=== PATIENT | female | born 1945 | race Asian ===

== ENCOUNTER 2024-01-31 13:58 | Emergency (ER) | payer OTHER, SELFPAY ==
[2024-01-31 14:02] VITALS: BP 171/62
--- NOTE | 2024-01-31 15:06 | ED.GENMED ---
History of Present Illness
<Nayeli Loyd PA-C - Last Filed: 01/31/24 23:59>
General
Chief Complaint: Head Injury
Source: patient
Exam Limitations: none
Time Seen by Provider: 01/31/24 14:59
Nursing documentation reviewed up to this point in time: agreed with
History of Present Illness
History of Present Illness:
Patient is a 78 year old female with hx CAD, HTN HLD, DM presenting to the emergency department for evaluation of head injury following mechanical fall earlier today. Patient is Mandarin speaking although her son-in-law and nurse are able to help
translate. Patient was walking in her garage about 1-1/2 hours ago when she tripped and fell striking the back of her head on the cement. Patient denies any loss of consciousness. Patient denies any preceding chest pain, shortness of breath,
dizziness, or lightheadedness and states that it was simply a trip and fall. Patient reports a mild headache and mild dizziness at this time. No other complaints. Patient has been ambulating without difficulty. She denies any pain in her
extremities.
Patient does take a baby aspirin daily.
Past History
<Nayeli Loyd PA-C - Last Filed: 01/31/24 23:59>
Past History
ED Past Medical History: CAD, HTN, Hypercholesterolemia, IDDM and Other (Brain aneurysm, kidney stones)
ED Past Surgical History: Appendectomy and Brain
Social History
Tobacco: Non-smoker
Review of Systems
<Nayeli Loyd PA-C - Last Filed: 01/31/24 23:59>
Review of Systems
Allergies reviewed?: Yes
All Other Systems: ROS reviewed and negative except as documented in HPI and ROS
Phy Exam
<Nayeli Loyd PA-C - Last Filed: 01/31/24 23:59>
Physical Exam
Physical Exam:
Vitals: Hypertensive, otherwise vital signs stable. Afebrile
General: Patient is well appearing, no acute distress. Nontoxic-appearing
Skin: Warm and dry, no rashes or lesions
Head: Normocephalic. Small hematoma to posterior scalp. No laceration
Eyes: Sclera nonicteric. EOMs intact. No nystagmus. No tenderness surrounding orbits. No proptosis
Throat: Protecting airway
Neck: Normal ROM, no cervical spine tenderness, no meningismus. Trachea midline
Cardiac: Regular rate and rhythm, no murmurs.
Pulm: Normal respiratory effort, no wheezes, rales, rhonchi heard on exam.
Abdomen: Abdomen soft and nontender.
Back: Mild tenderness to left paracervical spinal muscles. No midline spinal tenderness. No ecchymoses to bilateral flanks. No CVA tenderness
Extremities: Atraumatic and nontender with full range of motion of bilateral upper and lower extremities. No evidence of cyanosis or edema. Great distal pulses
Neuro: AAOx3. No focal neurologic deficits. Sensation fully intact. Moving all extremities. Strength 5 out of 5 in upper and lower extremities.
Psychiatric: Normal affect.
Course
<Nayeli Loyd PA-C - Last Filed: 01/31/24 23:59>
Orders/Labs/Results
Orders:
Orders
01/31/24 14:06
CT Head W/o Iv Contrast Urgent
Comment:
Reason For Exam: fall, posterior head strike
01/31/24 15:23
CT Cervical Spine W/o Iv Contr Urgent
Comment:
Reason For Exam: fall, posterior head strike
01/31/24 15:24
Acetaminophen [Tylenol] 650 mg PO NOW STA
Vital Signs
Initial and Last Documented VS:
Initial Vital Signs
Temp Pulse Resp BP Pulse Ox
99.7 F 60 18 171/62 99
01/31/24 14:02 01/31/24 14:02 01/31/24 14:02 01/31/24 14:02 01/31/24 14:02
Last Documented Vital Signs
Temp Pulse Resp BP Pulse Ox
99.7 F 60 18 171/62 99
01/31/24 14:02 01/31/24 14:02 01/31/24 14:02 01/31/24 14:02 01/31/24 14:02
<Nasir Maynard DO - Last Filed: 01/31/24 20:41>
Orders/Labs/Results
Orders:
Orders
01/31/24 14:06
CT Head W/o Iv Contrast Urgent
Comment:
Reason For Exam: fall, posterior head strike
01/31/24 15:23
CT Cervical Spine W/o Iv Contr Urgent
Comment:
Reason For Exam: fall, posterior head strike
01/31/24 15:24
Acetaminophen [Tylenol] 650 mg PO NOW STA
Vital Signs
Initial and Last Documented VS:
Initial Vital Signs
Temp Pulse Resp BP Pulse Ox
99.7 F 60 18 171/62 99
01/31/24 14:02 01/31/24 14:02 01/31/24 14:02 01/31/24 14:02 01/31/24 14:02
Last Documented Vital Signs
Temp Pulse Resp BP Pulse Ox
99.7 F 60 18 171/62 99
01/31/24 14:02 01/31/24 14:02 01/31/24 14:02 01/31/24 14:02 01/31/24 14:02
<Nayeli Loyd PA-C - Last Filed: 01/31/24 23:59>
MDM/Problems Addressed
Differential Diagnosis Includes:
Not limited to: Contusion, concussion, hematoma, intraparenchymal bleed, cervical muscle strain, doubt C-spine fracture
MDM/Problems Addressed:
78-year-old female presenting for evaluation of head injury sustained during mechanical trip and fall about 2 hours prior to arrival. Complaining of dull headache associated with some dizziness. Does not believe there was an associated loss of
consciousness. Patient did seem somewhat confused per patient's family. Patient on baby aspirin, otherwise no thinners. Mildly hypertensive on arrival, otherwise vital signs are stable. Physical exam as above. Patient does have a small hematoma
noted to her posterior scalp otherwise no traumatic injuries noted. Neuroexam without any focal deficits. Extremities without any evidence of traumatic injury. Abdomen soft and nontender. Heart regular rate and rhythm. Lungs clear bilaterally.
Given patient's unwitnessed fall and mechanism�a CT head and cervical spine was obtained without any acute abnormalities noted. I do suspect patient likely suffered a mild concussion. This was relayed to patient's family. Return precautions
discussed at length. Recommended Tylenol, rest, hydration. They will follow-up with primary care. Patient seen with attending physician.
Chronic conditions affecting care:
CAD on aspirin, hypertension
Acute Exacerbation and/or Progression of Chronic Illness:
Acutely hypertensive
<Nayeli Loyd PA-C - Last Filed: 01/31/24 23:59>
*Radiology
Radiology exam reviewed: preliminary read by ED provider and radiology read reviewed
*Pulse Oximetry
Patient hypoxic: no
*EKG
Interpreted by ED Provider?: NA
*Sugar Cane Planter Machine Operator Interpretation
Rate: Sugar Cane Planter Machine Operator- N/A
*Critical Care Note
Total Time (30-74mins, 75-104mins- exclusive of procedures): Not Applicable
ED Attending Note
<Nayeli Loyd PA-C - Last Filed: 01/31/24 23:59>
-
Portions of this chart may have been created with voice recognition software.� Occasional wrong word or��sound alike� substitutions may have occurred due to the inherent limitations of voice recognition software.
<Nasir Maynard DO - Last Filed: 01/31/24 20:41>
ED Attending Note
Patient seen and examined by attending physician: Yes
I performed the substantive portion of visit, reviewed & personally made and approve the management plan that is documented in note by myself or POLINA.: Yes
ED Attending Note:
Patient is a 78-year-old female who was struck on the back of the head today and had a questionable loss of consciousness but definitely was dazed and seemed to be disoriented according to the family. Patient took a while to come around and be at
her baseline. It was questionable whether the patient had a loss of consciousness. Patient did not have any nausea or vomiting. Patient denies any visual or speech difficulties. Patient denies any focal weakness. Patient was dizzy and unsteady
but doing better now. On physical exam patient has mild tenderness in the posterior scalp. Cervical spine is nontender. Heart is regular without murmur gallop. Abdomen soft nontender. Patient's neuroexam is intact. Patient is able to stand and
remain standing with her eyes closed while pressure was applied to multiple sides of the patient. Do believe patient suffered a concussion but CT of the head and neck are unremarkable. This was conveyed to the patient's family and she was
discharged.
Discharge Plan
Departure
Patient with high blood pressure during this ER visit?: Yes
Condition: Good
Covid-19: Not Applicable
Discharge Problem:
Concussion, Hematoma of occipital region of scalp
Instructions: Concussion, Adult (DC), Head Injury in Adults (DC), BLOOD PRESSURE
Referrals:
Merry Shaw PA [Family Provider] - Follow up in 5-7 days
Activity Restrictions/Additional Instructions:
RETURN TO THE EMERGENCY DEPARTMENT WITH ANY SEVERE HEADACHE, INTRACTABLE NAUSEA/VOMITING, PERSISTENT DIZZINESS, SEVERE NECK PAIN, ALTERED MENTAL STATUS, WORSENING IN CURRENT SYMPTOMS, OR ANY OTHER CONCERNS
-You should take it easy over the next few days. Get plenty of rest. Stay well-hydrated. You can take Tylenol as needed for any headache or discomfort.
-Follow-up with your primary care provider in a few days for further evaluation/ensure symptoms are improving.
Monitor your symptoms closely and return to the emergency department any acute worsening/new symptoms.
Interventions
Interventions:
*Risk Screen - Suicide Last Done: 01/31/24 14:02
*General Assessment Last Done: 01/31/24 14:02
*Neglect/Abuse Screening Last Done: 01/31/24 14:02
ED- Neurological Assessment Last Done: 01/31/24 14:43
Discharge Date and Time
Print Language: GEORGIAN
[2024-01-31] MEDS: TYLENOL 650 MG PO (15:32)
== END 2024-01-31 17:30 | disposition home or self-care (01) ==
LOC: EMR 13:58
PROVIDERS: EMERGENCY PHYSICIAN Emergency Medicine; FAMILY PHYSICIAN Physician Assistant
DX: S06.0X0A Concussion without loss of consciousness, initial encounter (principal); S00.03XA Contusion of scalp, initial encounter; W01.0XXA Fall on same level from slipping, tripping and stumbling without subsequent striking against object, initial encounter; Y93.01 Activity, walking, marching and hiking; Y92.008 Other place in unspecified non-institutional (private) residence as the place of occurrence of the external cause; I10 Essential (primary) hypertension; I25.10 Atherosclerotic heart disease of native coronary artery without angina pectoris; E11.9 Type 2 diabetes mellitus without complications; E78.00 Pure hypercholesterolemia, unspecified; Z87.442 Personal history of urinary calculi; Z79.4 Long term (current) use of insulin; Z79.82 Long term (current) use of aspirin
CPT/HCPCS: 99284; 70450; 72125

== ENCOUNTER 2024-02-25 08:53 | Inpatient (IN) | payer OTHER, SELFPAY ==
[2024-02-20] VITALS (7 sets, daily range): BP systolic 131–180; BP diastolic 40–96; BMI 29.4
[2024-02-20 16:09] LABS: Glucose - Point of Care 111 mg/dl (70-99)
--- NOTE | 2024-02-20 16:27 | ED.CVA ---
History of Present Illness
<Sonya Larios CAR TESTER - Last Filed: 02/22/24 07:10>
General
Chief Complaint: CVA/TIA Symptoms
Source: family (son in law at bedside. daughter on phone interpreting)
Exam Limitations: other (language barrier)
Time Seen by Provider: 02/20/24 16:26
Onset of Stroke Symptoms
Onset of symptoms known: No
Time pt last seen normal is known: No
History of Present Illness
History of Present Illness:
78yo female w /o HTN, HLD, IDDM, Daughter states pt was hospitalized in [place] 2011 for blood sugar out of control. Prior to leaving daughter insisted 'everything be checked out.. her heart, her brain, etc so a brain angiogram was done brain aneurism
incidentally found,pt was asymptomatic. Had coil in [place] and f/u CTA 05/2022 here at with no acute abnormality.
Pt was seen by family 7 p.m. last night with 'a little' slurred speech, not feeling well, went to bed early.
Awake 7 a.m. and from 7 a t 1 p.m 'seemed normal.' She got herself dressed and seemed fine. He happened to run into her in the kitchen at 3 p.m. and she was slurring her speech worse so he drove her here.
Pt arrives with daughter translating over 's cell phone.
Pt denies CP,SOB,Abd pain. She says she was having trouble with her 'getting around' unsteady on her feet.
Past History
<Sonya Larios CAR TESTER - Last Filed: 02/22/24 07:10>
Past History
ED Past Medical History: CAD, HTN, Hypercholesterolemia, IDDM and Other (Brain aneurysm, kidney stones)
ED Past Surgical History: Appendectomy and Brain (coil for aneurysm 2011)
Social History
Tobacco: Non-smoker
Review of Systems
<Sonya Larios CAR TESTER - Last Filed: 02/22/24 07:10>
Review of Systems
Allergies reviewed?: Yes
All Other Systems: ROS reviewed and negative except as documented in HPI and ROS
Constitutional: Denies fever
Respiratory: Denies trouble breathing
Cardiac: Denies chest pain
ABD/GI: Denies abdominal pain, nausea, vomiting or diarrhea
: Denies dysuria, flank pain, difficulty voiding or urgency
Musculoskeletal: Reports no symptoms
Skin: Reports no symptoms
Neurological: Reports dizzy (feels 'a little dizzy') and weakness (mild right side weakness); Denies headache or numbness
Phy Exam
<Sonya Larios, CAR TESTER - Last Filed: 02/22/24 07:10>
Physical Exam
Physical Exam:
GENERAL: No acute distress. A&Ox3.
CONSTITUTIONAL: Afebrile.
EYES: PERRL, conjunctivae normal, EOMs intact
ENMT: moist mucus membranes, Pharynx nl
RESPIRATORY: Regular respirations, nonlabored, lungs clear.
CARDIOVASCULAR: Regular rate and rhythm, no murmurs, no rubs.
GI: Soft, nontender, normal BS
MUSCULOSKELETAL: Moves with ease. Well perfused.
SKIN: Warm, dry, pink
PSYCH: Normal mood and affect. Well kept, interactive and appropriate
NEUROLOGIC: Awake, alert and oriented. Mild right mouth droop. Right hand grasp and right leg strength 4/5. left side 5/5.
Scores
<Sonya Larios, CAR TESTER - Last Filed: 02/22/24 07:10>
NIH Stroke Score
Level of Consciousness: 0 - Alert
LOC Questions: 0-Answers both correctly
LOC Commands: 0-Performs both correctly
Best Horizontal Gaze: 0-Normal
Visual Jade: 0=Normal, no visual loss
Facial Palsy: 1=Minor paralysis
Motor - Right Arm: 0=No drift 10 seconds
Motor - Left Arm: 0=No drift 10 seconds
Motor - Right Le-Drift < 5 seconds
Motor - Left Le-No drift 5 seconds
Limb Ataxia: 0-Absent
Sensation: 0-Normal
Best Language: 0-No aphasia
Dysarthria: 1-Mild slurring
Extinction and Inattention: 0-No abnormality
Total Score:: 3
Thrombolytic Contraindication
Reasons for NON-Tx with Thrombolytics ABSOLUTE Exclusions: Greater than 4.5 hrs from onset of sxs
IAT Contraindications: NIHSS < 6
<Spencer Almaguer, DO - Last Filed: 02/21/24 15:45>
NIH Stroke Score
Total Score:: 3
Course
<Sonya Larios, CAR TESTER - Last Filed: 02/22/24 07:10>
Orders/Labs/Results
Orders:
Orders
02/20/24 16:09
Electrocardiogram (*1) Urgent
Reason for Study: Other
Other Reason for Exam: Possible Stroke
Bedside Glucose- Treatment ONCE
Cardiac Monitoring- Treatment ONCE
IV Insert/Care/Rem.- Treatment PRN
02/20/24 16:10
EKG- Treatment ONCE
02/20/24 16:23
Complete Blood Count/With Diff Urgent
Comprehensive Metabolic Panel Urgent
PTT Urgent
Prothrombin Time Urgent
Troponin I Urgent
02/20/24 16:26
CT Head W/o Cont STROKE ALERT Urgent
Reason For Exam: slurred speech
02/20/24 16:32
CT Head/Neck Ang STROKE ALERT Urgent
Reason For Exam: strok alert, Dr. Forman request
02/20/24 17:17
Urinalysis Reflex To Culture Urgent
Date Specimen was Collected: 02/20/24
Time Specimen was Collected: 19:06
02/20/24 18:24
Admit/Transfer Patient As Directed
Co-Sign Provider:
Level of Care: Observation services
Assign to:: Telemetry
Physician / Group: Bishnu
Diagnosis: TIA/CVA
Reason for Telemetry: CVA/TIA
Date to Stop Telemetry: 02/23/24
Time to Stop Telemetry: 11:00
Clopidogrel Bisulfate [Plavix] 300 mg PO NOW STA
02/20/24 18:25
PRN Pain Medication Management As Directed
May give lesser potent ordered pain med per pt: Yes
preference::
Protocol:: Medication orders for pain may be administered in a
manner that supports deferring to patient preference
when the pt is:
- Requesting an ordered lesser potent pain medication.
Least to most potent pain medications are defined
as: acetaminophen < NSAID < tramadol < opioids
(morphine, oxycodone, hydromorphone).
- Requesting a lesser dose of the same medication IF
ORDERED.
- Requesting a less intrusive route of administration
if both routes are prescribed by the provider (PO <
IV).
02/20/24 18:26
Code Status As Directed
Resuscitation Status: Full Code
02/20/24 19:43
Acetaminophen [Tylenol/Feverall] 650 mg RECTAL Q4HPRN PRN
Acetaminophen [Tylenol] 650 mg PO Q4HPRN PRN
Dextrose 50%-Water [Dextrose 50% Syringe] 12.5 grams IV [id number] PRN
Glucagon [GlucaGen] 1 mg IM PRN PRN
02/20/24 19:43
Case Management Consult ONCE
Case Management Consult: Discharge Planning
Comment: stroke/tia
DIETARY CONSULT Routine
Reason for Consult: stroke/TIA
Print Controller Routine
Activity As Directed
Activity Level: Out of Bed- Chair
With Assistance
Bedside Glucose Monitoring As Directed
Frequency: AC&HS
Additional Instructions:: Change to q6h if pt on TPN, tube feeding or not eating
NIH Stroke Scale As Directed
Directions: Per protocol
Comment: every shift and with any change in condition or mental status
Neurological Checks As Directed
Frequency: q4h
Additional Instructions:: q4h x 24h upon admission to the floor, then qshift & with any change in condition
and mental status
Patient Education As Directed
Type: Stroke education packet
Comment: provide to patient and family
Pneumatic Compression Sleeves As Directed
Type: Knee high
Swallow Screening CVA/TIA ONLY As Directed
Comment: NPO until swallowing screening completed
If patient FAILS swallow screening:: NPO, Speech Therapy consult, Aspiration Precautions
If patient PASSES swallow screening, diet:: 2000 chadwick/ 17 CHO Diabetic
Above diet order entered?: Yes- passed screening
Vital Signs As Directed
Frequency: Per unit guidelines
Ot Eval And Treat Routine
Pt Eval And Treat Routine
Activity Level: Out of Bed-Early Mobility
Speech Therapy Eval & Treat Routine
DX Deep Vein Thrombosis Video Routine
02/20/24 22:00
insulin glargine [Basaglar KwikPen U-100 Insulin] 20 unit SC HS
02/21/24 06:00
Levothyroxine [Synthroid] 25 mcg PO DAILY@0600
02/21/24 07:23
Basic Metabolic Panel IN AM
Cardiovascular Evaluation IN AM
Complete Blood Count/No Diff IN AM
Glycohemoglobin (HgbA1c) IN AM
Magnesium IN AM
TSH Reflex To Free T4 IN AM
02/21/24 07:30
Insulin Aspart Corrective Mod [Novolog Flexpen-Moderate Resistance] See Protocol SC AC
02/21/24 08:00
Aspirin Chewable [Low Strength Aspirin] 81 mg PO DAILY
Clopidogrel Bisulfate [Plavix] 75 mg PO DAILY
Dapagliflozin [Farxiga] 10 mg PO DAILY
Losartan [Cozaar] 50 mg PO DAILY
Metoprolol Xl [Toprol Xl] 25 mg PO DAILY
Rosuvastatin Calcium [Crestor] 10 mg PO DAILY
02/23/24 11:00
DC Protocol for Telemetry ONCE
Abnormal Lab Results
02/20/24 02/20/24 02/20/24
16:07 16:23 17:17
RBC 3.47 L 10^6/uL
(4.20-5.40)
Hgb 10.7 L g/dL
(12.0-16.0)
Hct 32.1 L %
(37.0-47.0)
MPV 10.6 H fL
(7.4-10.4)
Absolute Monos (auto) 0.7 H 10^3/uL
(0.1-0.6)
APTT 21.7 L Sec
(23.4-35.0)
BUN 32 H mg/dl
(7-17)
Creatinine 1.7 H mg/dL
(0.6-1.0)
Glucose 109 H mg/dl
(70-99)
AST 40 H U/L
(14-36)
Ur Occult Blood Reflex Trace A
(Negative)
Urine Bacteria (Reflex) Few A
(Negative)
Urine Glucose 3+ A
(Negative)
POC Glucose 111 H mg/dl
(70-99)
02/20/24 16:23
02/20/24 16:23
Vital Signs
Initial and Last Documented VS:
Initial Vital Signs
Temp Pulse Resp BP Pulse Ox
98.9 F 66 18 151/69 99
02/20/24 15:59 02/20/24 15:59 02/20/24 15:59 02/20/24 15:59 02/20/24 15:59
Last Documented Vital Signs
Temp Pulse Resp BP Pulse Ox
98.3 F 52 18 128/46 99
02/22/24 03:42 02/22/24 03:42 02/22/24 03:42 02/22/24 03:42 02/22/24 03:42
Crystallt;Spencer Almaguer DO - Last Filed: 02/21/24 15:45>
Orders/Labs/Results
Orders:
Orders
02/20/24 16:09
Electrocardiogram (*1) Urgent
Reason for Study: Other
Other Reason for Exam: Possible Stroke
Bedside Glucose- Treatment ONCE
Cardiac Monitoring- Treatment ONCE
IV Insert/Care/Rem.- Treatment PRN
02/20/24 16:10
EKG- Treatment ONCE
02/20/24 16:23
Complete Blood Count/With Diff Urgent
Comprehensive Metabolic Panel Urgent
PTT Urgent
Prothrombin Time Urgent
Troponin I Urgent
02/20/24 16:26
CT Head W/o Cont STROKE ALERT Urgent
Reason For Exam: slurred speech
02/20/24 16:32
CT Head/Neck Ang STROKE ALERT Urgent
Reason For Exam: strok alert, Dr. Forman request
02/20/24 17:17
Urinalysis Reflex To Culture Urgent
Date Specimen was Collected: 02/20/24
Time Specimen was Collected: 19:06
02/20/24 18:24
Admit/Transfer Patient As Directed
Co-Sign Provider:
Level of Care: Observation services
Assign to:: Telemetry
Physician / Group: Bishnu
Diagnosis: TIA/CVA
Reason for Telemetry: CVA/TIA
Date to Stop Telemetry: 02/23/24
Time to Stop Telemetry: 11:00
Clopidogrel Bisulfate [Plavix] 300 mg PO NOW STA
02/20/24 18:25
PRN Pain Medication Management As Directed
May give lesser potent ordered pain med per pt: Yes
preference::
Protocol:: Medication orders for pain may be administered in a
manner that supports deferring to patient preference
when the pt is:
- Requesting an ordered lesser potent pain medication.
Least to most potent pain medications are defined
as: acetaminophen < NSAID < tramadol < opioids
(morphine, oxycodone, hydromorphone).
- Requesting a lesser dose of the same medication IF
ORDERED.
- Requesting a less intrusive route of administration
if both routes are prescribed by the provider (PO <
IV).
02/20/24 18:26
Code Status As Directed
Resuscitation Status: Full Code
02/20/24 19:43
Acetaminophen [Tylenol/Feverall] 650 mg RECTAL Q4HPRN PRN
Acetaminophen [Tylenol] 650 mg PO Q4HPRN PRN
Dextrose 50%-Water [Dextrose 50% Syringe] 12.5 grams IV [id number] PRN
Glucagon [GlucaGen] 1 mg IM PRN PRN
02/20/24 19:43
Case Management Consult ONCE
Case Management Consult: Discharge Planning
Comment: stroke/tia
DIETARY CONSULT Routine
Reason for Consult: stroke/TIA
Print Controller Routine
Activity As Directed
Activity Level: Out of Bed- Chair
With Assistance
Bedside Glucose Monitoring As Directed
Frequency: AC&HS
Additional Instructions:: Change to q6h if pt on TPN, tube feeding or not eating
NIH Stroke Scale As Directed
Directions: Per protocol
Comment: every shift and with any change in condition or mental status
Neurological Checks As Directed
Frequency: q4h
Additional Instructions:: q4h x 24h upon admission to the floor, then qshift & with any change in condition
and mental status
Patient Education As Directed
Type: Stroke education packet
Comment: provide to patient and family
Pneumatic Compression Sleeves As Directed
Type: Knee high
Swallow Screening CVA/TIA ONLY As Directed
Comment: NPO until swallowing screening completed
If patient FAILS swallow screening:: NPO, Speech Therapy consult, Aspiration Precautions
If patient PASSES swallow screening, diet:: 1999 chadwick/ 17 CHO Diabetic
Above diet order entered?: Yes- passed screening
Vital Signs As Directed
Frequency: Per unit guidelines
Ot Eval And Treat Routine
Pt Eval And Treat Routine
Activity Level: Out of Bed-Early Mobility
Speech Therapy Eval & Treat Routine
DX Deep Vein Thrombosis Video Routine
02/20/24 22:00
insulin glargine [Basaglar KwikPen U-100 Insulin] 20 unit SC HS
02/21/24 06:00
Levothyroxine [Synthroid] 25 mcg PO DAILY@0600
02/21/24 07:23
Basic Metabolic Panel IN AM
Cardiovascular Evaluation IN AM
Complete Blood Count/No Diff IN AM
Glycohemoglobin (HgbA1c) IN AM
Magnesium IN AM
TSH Reflex To Free T4 IN AM
02/21/24 07:30
Insulin Aspart Corrective Mod [Novolog Flexpen-Moderate Resistance] See Protocol SC AC
02/21/24 08:00
Aspirin Chewable [Low Strength Aspirin] 81 mg PO DAILY
Clopidogrel Bisulfate [Plavix] 75 mg PO DAILY
Dapagliflozin [Farxiga] 10 mg PO DAILY
Losartan [Cozaar] 50 mg PO DAILY
Metoprolol Xl [Toprol Xl] 25 mg PO DAILY
Rosuvastatin Calcium [Crestor] 10 mg PO DAILY
02/23/24 11:00
DC Protocol for Telemetry ONCE
Abnormal Lab Results
02/20/24 02/20/24 02/20/24
16:07 16:23 17:17
RBC 3.47 L 10^6/uL
(4.20-5.40)
Hgb 10.7 L g/dL
(12.0-16.0)
Hct 32.1 L %
(37.0-47.0)
MPV 10.6 H fL
(7.4-10.4)
Absolute Monos (auto) 0.7 H 10^3/uL
(0.1-0.6)
APTT 21.7 L Sec
(23.4-35.0)
BUN 32 H mg/dl
(7-17)
Creatinine 1.7 H mg/dL
(0.6-1.0)
Glucose 109 H mg/dl
(70-99)
AST 40 H U/L
(14-36)
Ur Occult Blood Reflex Trace A
(Negative)
Urine Bacteria (Reflex) Few A
(Negative)
Urine Glucose 3+ A
(Negative)
POC Glucose 111 H mg/dl
(70-99)
02/20/24 16:23
02/20/24 16:23
Vital Signs
Initial and Last Documented VS:
Initial Vital Signs
Temp Pulse Resp BP Pulse Ox
98.9 F 66 18 151/69 99
02/20/24 15:59 02/20/24 15:59 02/20/24 15:59 02/20/24 15:59 02/20/24 15:59
Last Documented Vital Signs
Temp Pulse Resp BP Pulse Ox
98.3 F 52 18 128/46 99
02/22/24 03:42 02/22/24 03:42 02/22/24 03:42 02/22/24 03:42 02/22/24 03:42
<Sonya Larios, CAR TESTER - Last Filed: 02/22/24 07:10>
MDM/Problems Addressed
Differential Diagnosis Includes:
TIA, CVA, hyponatremia, dehydration, UTI
MDM/Problems Addressed:
78yo female w /o HTN, HLD, IDDM, Daughter states pt was hospitalized in [place] 2011 for blood sugar out of control. Prior to leaving daughter insisted 'everything be checked out.. her heart, her brain, etc so a brain angiogram was done brain aneurism
incidentally found,pt was asymptomatic. Had coil in [place] and f/u CTA 05/2022 here at with no acute abnormality.
Pt was seen by family 7 p.m. last night with 'a little' slurred speech, not feeling well, went to bed early.
Awake 7 a.m. and from 7 a t 1 p.m 'seemed normal.' She got herself dressed and seemed fine. He happened to run into her in the kitchen at 3 p.m. and she was slurring her speech worse so he drove her here.
Pt arrives with daughter translating over 's cell phone.
Pt denies CP,SOB,Abd pain. She says she was having trouble with her 'getting around' unsteady on her feet.
Strok alert called. Spoke with Dr. Forman Neurology who requests CTA. Pt to CT scan
Pt back from CT, no IV access so plain CT done, no acute finding.
5:[address] Almaguer at bedside, using Language Line performed more thorough history and exam and will assume care from this point.
He discussed finding with daughter and son in law.
Pt to return to CT for CTA
Critical care statement: A total of 30 minutes of critical care time was provided for this patient. This includes management of unstable vital signs, evaluation of the patient at bedside, reviewing the patient's pertinent medical records, discussion
with consultants, review of old CTs and review of pertinent medical records. This time with separate from time utilized to perform the aforementioned documented procedures
<Sonya Larios NP - Last Filed: 02/22/24 07:10>
*Critical Care Note
Total Time (30-74mins, 75-104mins- exclusive of procedures): Not Applicable
ED Attending Note
<Sonya Larios, CAR TESTER - Last Filed: 02/22/24 07:10>
-
Portions of this chart may have been created with voice recognition software.� Occasional wrong word or��sound alike� substitutions may have occurred due to the inherent limitations of voice recognition software.
<Spencer AlistairJeff Almaguer DO - Last Filed: 02/21/24 15:45>
ED Attending Note
Patient seen and examined by attending physician: Yes
I performed a history and physical exam of patient and discussed management with resident, I reviewed resident's note and agree with documented findings and plan of care.: Yes
ED Attending Note:
I agree with Gricel's note
Patient presents for evaluation of some slurred speech, right-sided weakness and generally not acting herself. Patient is a Mandarin speaking 78-year-old lady who is currently presenting with her son-in-law. The patient's daughter is driving out
of the country. Last night the son-in-law felt the patient had some difficulty speaking and just did not seem herself. Symptoms seem to wax and wane. This morning she seemed to be speaking better in his estimation. When I asked the patient
through a Mandarin speaking fruit receiver if she felt normal when she woke up this morning she stated she did not. This afternoon around 3:00 he noted her symptoms were worse again. This prompted him to call 911 bring her to the hospital.
General: Awake, Alert, Oriented X3. No acute distress.
Vitals: unremarkable
Head: Atraumatic
Eyes: Pupils equal, EOMI
Throat: Airway intact, no exudates
Neck: Trachea midline
Lungs: Clear and equal b/l
Heart: Regular rate, no murmurs
Abd: Soft, Nontender, No pulsatile mass
Neuro: Mild right facial droop, mild drift right lower extremity, mildly slurred speech.
Skin: Warm, dry, no rash
Extremities: pulses equal b/l, no edema
CT without contrast shows an aspect score of 10. Old strokes on the left.
Patient is not a candidate for TNK because we cannot establish clearly that she was back to normal this morning. I suspect the onset of her symptoms was actually last night making her out of the window for thrombolytics.
Discharge Plan
Departure
Patient Disposition: Admit
Date of Disposition: 02/20/24
Time of Disposition: 17:51
Admit to: Telemetry
Presentation/result/management discussed w/ accepting MD/DO: Hospitalist
Condition: Fair
Discharge Problem:
Acute CVA (cerebrovascular accident)
Interventions
Interventions:
*Risk Screen - Suicide Last Done: 02/20/24 15:59
*General Assessment Last Done: 02/20/24 15:59
*Neglect/Abuse Screening Last Done: 02/20/24 15:59
ED- Fall Risk Assessment Last Done: 02/20/24 16:17
*ED COVID-19 Vaccine History Last Done: 02/20/24 16:16
*Nursing Disposition Last Done: 02/20/24 19:46
ED- Pulmonary Assessment Last Done: 02/20/24 16:20
ED- Neurological Assessment Last Done: 02/20/24 19:16
ED- Cardiac Assessment Last Done: 02/20/24 16:17
ED Swallowing Screen Last Done: 02/20/24 19:29
Discharge Date and Time
Discharge Date/Time: 02/20/24 19:46
[2024-02-20 16:29] LABS: % Basophils 0.6 % (0-2); % Eosinophils 1.6 % (0-6); % Immature Granulocytes 0.2 % (0-0.5); % Lymphocytes 24.6 % (20.5-51.1); Absolute Basophils 0.1 10^3/uL (0-0.2); Absolute Eosinophils 0.2 10^3/uL (0-0.7); Absolute Lymphocytes 2.3 10^3/uL (1.2-3.4); Absolute Monocytes 0.7 10^3/uL (0.1-0.6); Absolute Neutrophils 6.2 10^3/uL (1.4-6.5); Hematocrit 32.1 % (37.0-47.0); Hemoglobin 10.7 g/dL (12.0-16.0); Mean Corp Hgb Conc. 33.3 g/dL (33.0-37.0); Mean Corpuscular Hgb 30.8 pg (27.0-31.0); Mean Corpuscular Volume 92.5 fL (81.0-99.0); Mean Platelet Volume 10.6 fL (7.4-10.4); Nucleated Red Blood Cells % 0 %; Platelet Count 192 10^3/uL (130-400); Red Blood Cell Count 3.47 10^6/uL (4.20-5.40); White Blood Cell Count 9.4 10^3/uL (4.8-10.8)
--- NOTE | 2024-02-20 16:29 | PHANOTE ---
med rec tech(02/20/24)-Patient and family unable to provide medication list, compiled list through [facility] records(family practice visit 01/09/24) and [facility].
[2024-02-20 16:40] LABS: APTT 21.7 Sec (23.4-35.0); INR 1.03; PT 13.6 Sec (11.4-14.6)
[2024-02-20 16:52] LABS: Troponin I < 0.012 ng/ml
[2024-02-20 16:57] LABS: ALT (SGPT) 29 U/L (0-35); AST (SGOT) 40 U/L (14-36); Albumin 4.6 g/dl (3.5-5.0); Alkaline Phosphatase 73 U/L (38-126); Blood Urea Nitrogen 32 mg/dl (7-17); Calcium 9.9 mg/dl (8.4-10.2); Carbon Dioxide 23 mmol/L (22-30); Chloride 106 mmol/L (98-107); Glucose 109 mg/dl (70-99); Potassium 5.1 mmol/L (3.5-5.1); Sodium 144 mmol/L (135-145); Total Bilirubin 0.7 mg/dl (0.2-1.3)
--- NOTE | 2024-02-20 18:31 | HPS.HSE ---
Addendum entered and electronically signed by Ericka Gottlieb PA-C 02/20/24 20:42:
Patient unable to have MRI as we are unable to obtain extension agent information for the brain aneurysm coil. Will cancel MRI order.
Original Note:
Family Physician
-
Family Physician: Govind Calderon
Chief Complaint
-
Slurred Speech
History of Present Illness
Patient is 78 yo Mandarin-speaking female with a hx of HTN, DM, hypothyroidism, brain aneurysm s/p coil placed in 2011 in [place] presents for stroke-like symptoms beginning last night. History obtained through son-in-law and through Mandarin language
line can top setter. Last night around 7pm she developed 'a little' slurred speech and was not feeling well, so she went to bed early. She awoke at 7am this morning and son-in-law reports that she felt a bit better until the afternoon when he saw her
in the kitchen and she was again experiencing slurred speech. Patient reports feeling 'dizzy' and weak and that her speech is still a little slurred. She denies a personal history of heart disease or stroke.
Medical History
Past Medical History
Past Medical History: Reports Other
Additional Past Medical History:
ASCVD
Diabetes Mellitus, Type II
CKD Stage IV
Essential Hypertension
Hyperlipidemia
Hypothyroidism
Brain Aneurysm s/p Coil
Past Surgical History: Reports Other
Additional Past Surgical History:
Appendectomy
Brain Aneurysm Coil
Social History
Tobacco: Non-smoker
Alcohol: None
Living: With Family
Family History
Family History: Other (Mother: Heart Disease)
Allergies / Home Medications
Allergies reflects when Allergies were last updated in [facility].
Home Medications with original date entered in [facility] [facility]
Allergy/Medication List:
Allergies
Allergy/AdvReac Type Severity Reaction Status Date / Time
No Known Allergies Allergy Verified 02/20/24 15:58
Home Medications
aspirin 81 mg chewable tablet 81 mg PO DAILY 02/20/24
calcium carbonate 500 mg PO DAILY 02/20/24
empagliflozin 25 mg tablet (Jardiance) 25 mg PO DAILY 02/20/24
hydrochlorothiazide 25 mg tablet 25 mg PO DAILY 02/20/24
insulin glargine 100 unit/mL (3 mL) subcutaneous pen (Basaglar KwikPen U-100 Insulin) unit SC HS 02/20/24
insulin glulisine U-100 100 unit/mL subcutaneous pen (Apidra SoloStar U-100 Insulin) 1 sliding scale dose SC DIRECTED 02/20/24
levothyroxine 25 mcg tablet 25 mcg PO DAILY 02/20/24
losartan 50 mg tablet 50 mg PO DAILY 02/20/24
metoprolol succinate 25 mg tablet,extended release 24 hr 25 mg PO DAILY 02/20/24
nitroglycerin 0.4 mg sublingual tablet 0.4 mg sublingual [id number] PRN chest pain 02/20/24
rosuvastatin 40 mg tablet 40 mg PO DAILY 02/20/24
Review of Systems
-
Unable to obtain full review of systems at this time due to: Language Barrier
Physical Exam
Vital Signs
Vital Signs
Temp Pulse Resp BP Pulse Ox
98.9 F 72 18 180/83 100
02/20/24 15:59 02/20/24 16:30 02/20/24 16:30 02/20/24 16:11 02/20/24 16:30
Physical Exam
General: Comfortable and Conversant
HEENT: Moist mucous membranes and Atraumatic
Respiratory: Clear and Non Labored Respirations
Cardiac: S1/S2 and Regular Rhythm
GI: Soft and Non Tender
Musculoskeletal: No Clubbing and No Cyanosis
Skin: Warm and Dry
Neuro: Awake, Alert, Oriented, Facial Droop and Other (4/5 Strength RUE and RLE; 5/5 Strength LUE and LLE)
Psych: Calm
Laboratory Results
-
02/20/24 16:23
02/20/24 16:23
Laboratory Results
PT 13.6 Sec (11.4-14.6) 02/20/24 16:23
INR 1.03 02/20/24 16:23
APTT 21.7 Sec (23.4-35.0) L 02/20/24 16:23
Total Bilirubin 0.7 mg/dl (0.2-1.3) 02/20/24 16:23
AST 40 U/L (14-36) H 02/20/24 16:23
ALT 29 U/L (0-35) 02/20/24 16:23
Alkaline Phosphatase 73 U/L (38-126) 02/20/24 16:23
Troponin I < 0.012 ng/ml 02/20/24 16:23
Data Reviewed
-
Lab Data: Labs Reviewed by me
Impression/Plan
-
Right Facial Droop with Right Sided Weakness, clinical concern for TIA/CVA
-Consult Neurology
-Continue Aspirin and Plavix
-Check Brain MRI
-Check HgbA1c and FLP
-Monitor Neuro-Checks
ASCVD
-Continue aspirin
Diabetes Mellitus, Type II
-Check HgbA1c
-Continue Basaglar
-Monitor sugars and continue coverage insulin
Chronic Kidney Disease
-Unknown baseline creatinine, but outpatient records indicate stage 4
Essential Hypertension
-Hold HCTZ
-Continue losartan and metoprolol with hold parameters
Hyperlipidemia
-Continue rosuvastatin
Hypothyroidism
-Continue levothyroxine
Hx Brain Aneurysm s/p Coil
DVT proph: SCDs
Code Status: Full Code
[2024-02-20 19:15] LABS: Urine Albumin Trace (Neg - Trace); Urine Bilirubin Negative (Negative); Urine Character Clear (Clear); Urine Color Yellow; Urine Glucose 3+ (Negative); Urine Ketone Negative (Negative); Urine Leukocyte Negative (Negative); Urine Nitrite Negative (Negative); Urine Occult Blood Trace (Negative); Urine Urobilinogen Negative (Neg - 1+)
[2024-02-20] MEDS: PLAVIX 300 MG PO (19:21)
[2024-02-20 19:23] LABS: Urine Red Blood Cell 0-2 /HPF (0-2); Urine White Cell 0-2 /HPF (0-5)
[2024-02-20 19:24] LABS: Urine Bacteria Few (Negative); Urine Mucus Moderate
--- NOTE | 2024-02-20 19:45 | W.PN.UPDATE ---
Update Note
Progress Note Update
This is an addendum to the H&P written by Violet Gottlieb on 02/20/2024.� 78-year-old Y[place]ut speaking female with past medical history of CAD, hypertension, hypercholesteremia, diabetes, asymptomatic brain aneurysm status post coiling in 2011,
CKD 4, hypothyroidism, presenting with slurred speech since last night.
CT head shows no acute abnormality.� CTA head and neck shows no significant vascular occlusion, aneurysm or dissection.� There is 50% stenosis of the proximal bilateral internal carotid arteries.
On examination she has right lower facial droop, right upper extremity weakness, slurred speech.
Concern for left hemispheric TIA/CVA.� Continue aspirin.� Give Plavix.� Neurochecks per protocol.� Check A1c and lipid panel.� Check MRI brain.� Check speech and swallow/PT/OT.� Neurology consulted.
--- NOTE | 2024-02-20 19:55 | PTCARENOTE ---
Patient arrived from ED via stretcher. Patient pulled over onto the bed. Accompanied by son. Patient is x1 assist with no assistive devices. Family helped obtain health history and admission questions. Patient speaks mandarin. Language line
obtained. Bed alarm in place. Call [facility] is within reach.
[2024-02-20] MEDS: LANTUS 0.2 UNITS SC (21:30)
[2024-02-20 21:33] LABS: Glucose - Point of Care 168 mg/dl (70-99)
[2024-02-21] VITALS (8 sets, daily range): BP systolic 98–165; BP diastolic 48–70; PULSE 66–69; O2SAT 98
[2024-02-21] MEDS: SYNTHROID 25 MCG PO (04:53)
[2024-02-21 07:34] LABS: Glucose - Point of Care 119 mg/dl (70-99)
[2024-02-21 07:56] LABS: Hematocrit 30.3 % (37.0-47.0); Hemoglobin 10.4 g/dL (12.0-16.0); Mean Corp Hgb Conc. 34.3 g/dL (33.0-37.0); Mean Corpuscular Hgb 31.7 pg (27.0-31.0); Mean Corpuscular Volume 92.4 fL (81.0-99.0); Mean Platelet Volume 10.5 fL (7.4-10.4); Platelet Count 157 10^3/uL (130-400); Red Blood Cell Count 3.28 10^6/uL (4.20-5.40); Red Cell Dist. Width 12.5 % (11.5-14.5); White Blood Cell Count 6.6 10^3/uL (4.8-10.8)
[2024-02-21 08:11] LABS: Blood Urea Nitrogen 24 mg/dl (7-17); Calcium 9.5 mg/dl (8.4-10.2); Carbon Dioxide 21 mmol/L (22-30); Chloride 106 mmol/L (98-107); Estimated Creatinine Clearance 30 ml/min; Glucose 109 mg/dl (70-99); HDL Cholesterol 49 mg/dl; LDL Cholesterol, Calculated 36 mg/dl; Magnesium 2.3 mg/dl (1.6-2.3); Potassium 4.6 mmol/L (3.5-5.1); Sodium 143 mmol/L (135-145); Total Cholesterol 117 mg/dl (50-199); Triglyceride 160 mg/dl (10-149); Very Low Density Lipoprotein 32 mg/dl (0-30); eGFR 35.45
--- NOTE | 2024-02-21 08:35 | PTOTSP ---
Speech Language Pathology
Pt seen for speech and cognitive-linguistic evaluation. Utilized video SHAPE auto body mechanic apprentice during evaluation. Supply Chain Director reported intermittent dysarthria. Stated speech would be clear, and then a statement would be unintelligible. Pt oriented
to name, , hospital, and month/year. Did not know which hospital, although she participated in outpatient PT in 2017, so should be familiar with location. Also stated it was February 18 instead of the . Stated she has had memory issues
for some time. Provided 3 words to remember for 3 minutes. Pt did not recall being provided 3 words at the end of 3 minutes. Confrontation naming= 50% independently, semantic cueing did not increase accuracy. Pt was not aware of word-finding
difficulties or intermittent dysarthria.
Pt also seen for clinical bedside swallow evaluation. P.O. trials of regular solids and thin liquids provided. Adequate mastication, bolus formation, and A-P transit noted with no oral residue. No overt signs of aspiration.
Recommend:
(1) Continue regular solids/thin liquids
(2) General aspiration precautions
(3) Meds as tolerated
(4) Further dysphagia services not indicated. Will continue to follow for cognitive-linguistic and dysarthria tx
--- NOTE | 2024-02-21 08:50 | W.PN.HOSP.TC ---
Today's Communication/Plan
-
DAPT and statins. PT OT. Repeat CT of the head
Assessment / Plan
Assessment / Plan
Physical Exam
General: Comfortable and Conversant
HEENT: Moist mucous membranes and Atraumatic
Respiratory: Clear and Non Labored Respirations
Cardiac: S1/S2 and Regular Rhythm
GI: Soft and Non Tender
Musculoskeletal: No Clubbing and No Cyanosis
Skin: Warm and Dry
Neuro: Awake, Alert, Oriented, Facial Droop and Other (4/5 Strength RUE and RLE; 5/5 Strength LUE and LLE)
Psych: Calm
A/P:
Right Facial Droop with Right Sided Weakness, clinical concern for TIA/CVA
-Consult Neurology
-Continue Aspirin and Plavix
-Unable to do brain MRI due to aneurysm coiling. Repeat CT of the head 24 hours
-Discussed with patient via outreach manager
-Check HgbA1c and FLP--> 6.5, and LDL 36
-Monitor Neuro-Checks
-PT OT and speech therapy eval
ASCVD
-Continue aspirin
Diabetes Mellitus, Type II
-Check HgbA1c and resulted as above
-Continue Basaglar
-Monitor sugars and continue coverage insulin
Chronic Kidney Disease
-Unknown baseline creatinine, but outpatient records indicate stage 4
Essential Hypertension
-Hold HCTZ
-Continue losartan and metoprolol with hold parameters
Hyperlipidemia
-Continue rosuvastatin
Hypothyroidism
-Continue levothyroxine
Hx Brain Aneurysm s/p Coil
DVT proph: SCDs
Code Status: Full Code
Anticipated Discharge: 24 - 48 hours
Subjective/Interval History
-
Date of Service: February 21, 2024
Patient still having some weakness in her right upper and lower extremity and also slurred speech and feels not back to her baseline.
Objective Data
-
Labs:
Laboratory Results
02/21/24
07:23
WBC 6.6
Hgb 10.4 L
Hct 30.3 L
Plt Count 157
Sodium 143
Potassium 4.6
Chloride 106
Carbon Dioxide 21 L
BUN 24 H
Creatinine 1.5 H
Glucose 109 H
Calcium 9.5
Vital Signs:
Vital Signs
Temp Pulse Resp BP Pulse Ox
97.9 F 56 16 151/48 99
02/21/24 04:36 02/21/24 04:36 02/21/24 04:36 02/21/24 04:36 02/21/24 04:36
I&O
02/20/24 02/21/24 02/22/24
06:59 06:59 06:59
Intake Total 480 / 480
Balance 480 / 480
--- NOTE | 2024-02-21 08:50 | CON.NEURO4 ---
Addendum entered and electronically signed by Cullen Ayers MD 02/21/24 11:46:
Studies reviewed.
I have personally examined the patient. I reviewed and agree with the EXECUTIVE VICE PRESIDENT's Note.
My addenda:
Awake, alert, interactive. No acute distress.
Speech questionably dysarthric in Mandarin.
Follows 2-step requests w/ difficulty. No tremor.
Extra-ocular movements grossly intact.
Facial movements full and symmetric. Hearing intact to normal conversational volume.
Normal UE movements bilaterally.
Neck: full ROM.
Chest: no dyspnea
Heart: no JVD
Ext: (-) Clubbing, (-) Cyanosis, (-) Edema
IMPRESSIONS/RECOMMENDATIONS:
Abrupt onset of right upper extremity weakness with speech slurring and increasing confusion.
Most likely due to acute onset ischemic stroke involving left MCA territory in a patient with cognitive difficulties suggestive of Alzheimer's
Agree with addition of clopidogrel to the patient's usual aspirin
As the patient was unable to undergo MRI of brain due to aneurysm coiling, eventual repeat CT of head for attempt to visualize (can be as outpatient)
D/W patient via heater installer
All questions answered.
Will continue to follow patient.
Original Note:
Documented by User: Ivette Eason NP 02/21/24 10:44
Consultation - Neurology 4
-
CONSULTING PHYSICIAN: Cullen Ayers MD
REFERRING PHYSICIAN: Hospitalists/Ericka Gottlieb PA-C
DICTATED BY: ALVA Olivas
DATE/TIME OF REQUEST: 02/20/24
DATE/TIME OF CONSULTATION: 02/21/24
Reason for Consultation: Slurred speech
History of Present Illness:
This is a 78-year-old right-handed Mandarin speaking female who has presented to the hospital on 02/20/24 with report of slurred speech. Patient is a poor historian and most of this information is obtained from medical records. Patient's family
notes that they saw the patient around 1900 on 02/19/24 and her speech was mildly slurred at that time. She told them she wasn't feeling well and went to bed early. The following morning (02/20/24), her family felt that she seemed at her baseline from
[id number]. Around 1500 they ran into her in the kitchen and noticed that her speech was significantly slurred, and brought her to the ER for evaluation. CT head and CTA head/neck were obtained on arrival and are negative for any acute findings.
Patient noted in the ER that she felt unsteady on her feet during the day and felt a little 'dizzy.' NIHSS was 3 for mild right facial droop, mild dysarthria, and RLE drift. She was not a candidate for TNK/IAT due to NIHSS<6 and outside of time
window given symptoms likely started on 02/19/24 at 1900. She was already taking aspirin 81mg daily, she was loaded with Plavix in the ER. Patient knows where she is but offers little insight to current situation. She denies any headache, dizziness,
vision changes, speech/swallow difficulty, numbness, weakness, chest pain, palpitations, and shortness of breath. She denies any history of TIA or stroke in the past. She does not having recent significant memory problems, it is unclear what her
cognitive baseline is or how long ago her memory deficits began. She had an incidental finding of a L ICA supraclinoid aneurysm stent/coil in [place] in 2011, it does not appear that she has had any Neurosurgery or Neurology follow-up in the [place].
Past Medical History: L ICA supraclinoid aneurysm, previous left frontal, parietal-occipital, and left basal ganglia ischemic infarcts, HTN, HLD, CKD, NIDDM requiring insulin, CAD, osteoarthritis, obesity, carotid artery stenosis, thyroid nodule,
chronic back pain
Surgical History: Stent/coil of L ICA supraclinoid aneurysm 2012 in [place], appendectomy
Family History: Reviewed and noncontributory.
Social History: Denies tobacco, alcohol, and illicit drug use.
Allergies: No known allergies.
Home Medications: See below.
Review of Symptoms:
Patient denies any fever, headache, chest pain, shortness of breath, GI or symptoms.
�Per the HPI.�All systems are reviewed negative except above.
Physical Exam:
The patient is afebrile, abdomen is nondistended, breathing is unlabored, skin is warm and dry, no edema.
NIH Stroke Scale:
I performed the NIH stroke scale on the patient on 02/21/24 at 0900. The patient scored 3 points on the NIH stroke scale assessment, which were assigned as follows: See below.
Neurologic Examination:
The patient is awake, alert and oriented x 3, very poor historian. She is able to follow one-step commands and answer questions appropriately. There is mild aphasia. There is mild intermittent dysarthria. On cranial nerve assessment, pupils are 3
mm bilateral, round and reactive to light and accommodation. Visual jade are full. Extraocular movements are intact. Facial sensations are intact and bilaterally symmetrical, there is no facial asymmetry. Hearing is intact bilaterally to normal
conversation volume. Tongue palate and uvula are midline. Motor strengths are 5/5 bilateral upper, 5/5 left lower, and 5-/5 right lower extremities on medical research [place] scale. There is no drift or involuntary movement noted. Deep tendon
reflexes are 1+ bilateral upper and lower extremities and Babinski is absent bilaterally. There was no extinction noted on double simultaneous stimulation. Coordination is intact by finger to nose bilaterally.
Lab Results: See below.
Neuro Imaging:
1. CT Head 02/20/24: No acute intracranial abnormality noted. Chronic senescent changes. ASPECTS Score: 10.
2. CTA Head/Neck 02/20/24: No significant vascular occlusion, aneurysm or dissection. Mild to moderate scattered calcific plaque in the carotid bulbs bilaterally resulting in up to 50% stenosis of the proximal bilateral internal carotid arteries.
Differentials for the patient's presentation include:
1. Acute left hemisphere ischemic infarct likely producing patient's dysarthria, mild aphasia, and RLE weakness.
2. Remote elective L ICA supraclinoid aneurysm stent/coil in [place] 2011, unable to have MRI brain due to this.
3. CT head demonstrates old left frontal, left frontoparietal, and left basal ganglia infarcts.
Patient has the following risk factors for their symptoms:
IV Tenecteplase/IAT candidacy: Not a candidate due to outside of time window, NIHSS<6, no LVO.
Recommendations:
-Continue DAPT with aspirin 81mg and Plavix 75mg daily x21 days. After 21 days, discontinue Plavix and continue aspirin 81mg daily only. Consideration of changing from aspirin to plavix monotherapy after 21 days given this event occurred on aspirin.
-Goal normotension as symptom onset was >24 hours ago.
-Unable to obtain MRI brain. Can repeat CT head noncontrast in several weeks/months for follow-up unless there is a significant change in NIHSS while hospitalized.
-LDL goal <70. LDL is 36. Continue home rosuvastatin 40mg daily as LDL is at goal.
-Goal normoglycemia, hbA1c is 6.5.
-NIHSS and neurological checks per unit guidelines.
-Provide patient with a stroke education packet.
-PT/OT/ST evaluations.
-DVT prophylaxis.
Discussed patient care with: Dr. Ayers, the patient
Vital Signs and Labs
-
Vital Signs and Labs:
Vital Signs
Temp Pulse Resp BP Pulse Ox
97.9 F 56 16 151/48 99
02/21/24 04:36 02/21/24 04:36 02/21/24 04:36 02/21/24 04:36 02/21/24 04:36
Lab Results
02/21/24 07:23
02/21/24 07:23
PT 13.6 Sec (11.4-14.6) 02/20/24 16:23
INR 1.03 02/20/24 16:23
APTT 21.7 Sec (23.4-35.0) L 02/20/24 16:23
Sodium 143 mmol/L (135-145) 02/21/24 07:23
Potassium 4.6 mmol/L (3.5-5.1) 02/21/24 07:23
BUN 24 mg/dl (7-17) H 02/21/24 07:23
Glucose 109 mg/dl (70-99) H 02/21/24 07:23
Calcium 9.5 mg/dl (8.4-10.2) 02/21/24 07:23
LDL Cholesterol, Calc 36 mg/dl 02/21/24 07:23
Medications
-
Active Medications
Generic Name Dose Route Start Last Admin
Trade Name Freq PRN Reason Stop Dose Admin
Acetaminophen 650 mg 02/20/24 19:43
Acetaminophen 650 Mg Rectal Suppository RECTAL 03/19/24 19:42
Q4HPRN PRN
WATTS, mild pain, or temp >100.4F
Acetaminophen 650 mg 02/20/24 19:43
Acetaminophen 325 Mg Tablet PO 03/19/24 19:42
Q4HPRN PRN
WATTS, mild pain, or temp >100.4F
Aspirin 81 mg 02/21/24 08:00
Aspirin 81 Mg Chewable Tablet PO 03/20/24 07:59
DAILY THADDEUS
Clopidogrel Bisulfate 75 mg 02/21/24 08:00
Clopidogrel 75 Mg Tablet PO 03/20/24 07:59
DAILY THADDEUS
Dapagliflozin 10 mg 02/21/24 08:00
Dapagliflozin (Farxiga) 10 Mg Tablet PO 03/20/24 07:59
DAILY THADDEUS
Dextrose 12.5 grams 02/20/24 19:43
Dextrose 50% (0.5 Grams/Ml) 50 Ml Syringe IV 03/19/24 19:42
[id number] PRN
hypoglycemia
Protocol
Glucagon 1 mg 02/20/24 19:43
Glucagon 1 Mg Vial IM 03/19/24 19:42
PRN PRN
hypoglycemia
Protocol
Insulin Glargine 20 units/ 0.2 mls @ 0 mls/hr 02/20/24 22:00 02/20/24 21:30
Device SC 03/19/24 21:59 0.2 mls
HS THADDEUS Administration
As Directed
Insulin Aspart 0 units 02/21/24 07:30
Insulin Aspart Moderate Resistance 300 Units/3 Ml Pen.Injctr SC 03/20/24 07:29
AC THADDEUS
Protocol
Levothyroxine Sodium 25 mcg 02/21/24 06:00 02/21/24 04:53
Levothyroxine 25 Mcg Tablet PO 03/20/24 05:59 25 mcg
DAILY@0600 THADDEUS Administration
Losartan Potassium 50 mg 02/21/24 08:00
Losartan 50 Mg Tablet PO 03/20/24 07:59
DAILY THADDEUS
Metoprolol Succinate 25 mg 02/21/24 08:00
Metoprolol 25 Mg Extended Release Tablet PO 03/20/24 07:59
DAILY THADDEUS
Rosuvastatin Calcium 10 mg 02/21/24 08:00
Rosuvastatin (Crestor) 10 Mg Tablet PO 03/20/24 07:59
DAILY THADDEUS
Home Medications
�Medication �Instructions �Recorded
aspirin 81 mg chewable tablet 81 mg PO DAILY 02/20/24
calcium carbonate 500 mg PO DAILY 02/20/24
empagliflozin 25 mg tablet 25 mg PO DAILY 02/20/24
(Jardiance)
hydrochlorothiazide 25 mg tablet 25 mg PO DAILY 02/20/24
insulin glargine 100 unit/mL (3 unit SC 02/20/24
mL) subcutaneous pen (Basaglar
KwikPen U-100 Insulin)
insulin glulisine U-100 100 1 sliding scale dose SC DIRECTED 02/20/24
unit/mL subcutaneous pen (Apidra
SoloStar U-100 Insulin)
levothyroxine 25 mcg tablet 25 mcg PO DAILY 02/20/24
losartan 50 mg tablet 50 mg PO DAILY 02/20/24
metoprolol succinate 25 mg 25 mg PO DAILY 02/20/24
tablet,extended release 24 hr
nitroglycerin 0.4 mg sublingual 0.4 mg sublingual [id number] PRN 02/20/24
tablet chest pain
rosuvastatin 40 mg tablet 40 mg PO DAILY 02/20/24
NIH Stroke Score
Subsequent NIH Scale
Date of Subsequent NIH Scale: 02/21/24
Time of Subsequent NIH Scale: 09:00
NIH Stroke Score
Level of Consciousness: 0 - Alert
LOC Questions: 0-Answers both correctly
LOC Commands: 0-Performs both correctly
Best Horizontal Gaze: 0-Normal
Visual Jade: 0=Normal, no visual loss
Facial Palsy: 0=Normal, symmetrical
Motor - Right Arm: 0=No drift 10 seconds
Motor - Left Arm: 0=No drift 10 seconds
Motor - Right Le-Drift < 5 seconds
Motor - Left Le-No drift 5 seconds
Limb Ataxia: 0-Absent
Sensation: 0-Normal
Best Language: 1-Mild aphasia
Dysarthria: 1-Mild slurring
Extinction and Inattention: 0-No abnormality
Total Score:: 3
Modified [place] (mRS) Score
Modified [place] Scale (mRS): Moderate disability. Requires some help, able to walk unassisted.
Score: 3

Documented by User: Cullen Ayers MD 02/21/24 11:30
NIH Stroke Score
NIH Stroke Score
Total Score:: 3
Modified [place] (mRS) Score
Score: 3
[2024-02-21 09:19] LABS: Glycohemoglobin (HgbA1c) 6.5 % (4.0-5.6)
[2024-02-21 09:59] LABS: TSH Reflex To Free T4 8.05 uIU/ml (0.47-4.68)
[2024-02-21] MEDS: NOVOLOG FLEXPEN-MODERATE RESISTANCE SC ×2 (10:08→17:47)
[2024-02-21] MEDS: CRESTOR 10 MG PO (10:09)
[2024-02-21] MEDS: LOW STRENGTH ASPIRIN 81 MG PO (10:10)
[2024-02-21] MEDS: TOPROL XL 25 MG PO (10:10)
[2024-02-21] MEDS: FARXIGA 10 MG PO (10:10)
[2024-02-21] MEDS: PLAVIX 75 MG PO (10:10)
[2024-02-21] MEDS: COZAAR 50 MG PO (10:10)
[2024-02-21 10:29] LABS: Free T4 1.08 ng/dl (0.78-2.19)
[2024-02-21 12:16] LABS: Glucose - Point of Care 241 mg/dl (70-99)
[2024-02-21] MEDS: NOVOLOG FLEXPEN-MODERATE RESISTANCE 3 UNITS SC (12:58)
[2024-02-21 13:36] LABS: Erythrocyte Sed Rate 56 mm/hour (0-20)
[2024-02-21 15:17] LABS: Folate > 20.0 ng/ml (2.76-20); Vitamin B12 993 pg/ml (239-931)
--- NOTE | 2024-02-21 15:53 | CM ---
Addendum entered by Liyah Gibbs 02/21/24 18:10:
[facility] referral sent via [facility]. Ana Lilia at [facility] advised that [facility] will cover acute rehab if pt meets criteria.
Original Note:
CM called Kelechi's daughter; she is in [place] currently. Son-in-law was able to merge the calls together, so I spoke with both daughter and son-in-law.
Kelechi is independent at baseline, speaks Mandarin. Home is 2 stories and patient has a first floor set up. Attempted to obtain information about DME, however family was arguing during the call and ultimately decided that son-in-law would come
to the hospital to speak with the physician, as they are interested in the diagnoses, medications ,and plan.
I spoke with family about transfer to [facility] and they would be agreeable to same pending discussion with the doctor.
CM to send referral to [facility] for review. Acute Rehab authorization will need to be obtained if accepted. Pt has [facility] Plan.
Plan: CM to follow to coordinate transfer to [facility] pending medical clearance, [facility] acceptance and insurance authorization.
[2024-02-21 16:24] LABS: Glucose - Point of Care 119 mg/dl (70-99)
[2024-02-21 19:42] LABS: Hepatitis C Antibody Negative (Negative)
[2024-02-21 21:01] LABS: Glucose - Point of Care 185 mg/dl (70-99)
[2024-02-21] MEDS: LANTUS 0.2 UNITS SC (21:51)
[2024-02-22] VITALS (7 sets, daily range): BP systolic 119–149; BP diastolic 35–84; PULSE 60
[2024-02-22] MEDS: SYNTHROID 25 MCG PO (06:28)
--- NOTE | 2024-02-22 07:51 | W.PN.NEURO.1 ---
Today's Communication / Plan
-
Agree with addition of clopidogrel to the patient's usual aspirin, for total of 21 days, then the patient should be continued only on clopidogrel
eventual repeat CT of head for attempt to visualize (can be as outpatient)
Neuro Assessment/Plan
Assessment
IMPRESSIONS/RECOMMENDATIONS:
Abrupt onset of right upper extremity weakness with speech slurring and increasing confusion.
Most likely due to acute onset ischemic stroke involving left MCA territory in a patient with cognitive difficulties suggestive of Alzheimer's
patient was unable to undergo MRI of brain due to aneurysm coiling,
Blood work does not demonstrate a metabolic etiology for the patient's dementia
Plan
Agree with addition of clopidogrel to the patient's usual aspirin, for total of 21 days, then the patient should be continued only on clopidogrel
eventual repeat CT of head for attempt to visualize (can be as outpatient)
Will follow as needed
Subjective/Objective
Subjective Data
Date of Service: February 22, 2024
Objective Data
Vital Signs
Temp Pulse Resp BP Pulse Ox
36.8 C 52 18 128/46 99
02/22/24 03:42 02/22/24 03:42 02/22/24 03:42 02/22/24 03:42 02/22/24 03:42
Lab Results
02/21/24 07:23
PT 13.6 Sec (11.4-14.6) 02/20/24 16:23
INR 1.03 02/20/24 16:23
APTT 21.7 Sec (23.4-35.0) L 02/20/24 16:23
Sodium 143 mmol/L (135-145) 02/21/24 07:23
Potassium 4.6 mmol/L (3.5-5.1) 02/21/24 07:23
BUN 24 mg/dl (7-17) H 02/21/24 07:23
Glucose 109 mg/dl (70-99) H 02/21/24 07:23
Calcium 9.5 mg/dl (8.4-10.2) 02/21/24 07:23
LDL Cholesterol, Calc 36 mg/dl 02/21/24 07:23
Vitamin B12 993 pg/ml (239-931) H 02/21/24 07:23
Patient Allergies
No Known Allergies Allergy (Verified 02/20/24 15:58)
Past History
Past History
ED Past Medical History: CAD, HTN, Hypercholesterolemia, IDDM and Other (Brain aneurysm, kidney stones)
ED Past Surgical History: Appendectomy and Brain (coil for aneurysm 2011)
Social History
Tobacco: Non-smoker
Family History
Family History: Other (Reviewed and noncontributory)
Medications
-
Medications:
Generic Name Dose Route Start Last Admin
Trade Name Freq PRN Reason Stop Dose Admin
Acetaminophen 650 mg 02/20/24 19:43
Acetaminophen 650 Mg Rectal Suppository RECTAL 03/19/24 19:42
Q4HPRN PRN
WATTS, mild pain, or temp >100.4F
Acetaminophen 650 mg 02/20/24 19:43
Acetaminophen 325 Mg Tablet PO 03/19/24 19:42
Q4HPRN PRN
WATTS, mild pain, or temp >100.4F
Aspirin 81 mg 02/21/24 08:00 02/21/24 10:10
Aspirin 81 Mg Chewable Tablet PO 03/20/24 07:59 81 mg
DAILY THADDEUS Administration
Clopidogrel Bisulfate 75 mg 02/21/24 08:00 02/21/24 10:10
Clopidogrel 75 Mg Tablet PO 03/20/24 07:59 75 mg
DAILY THADDEUS Administration
Dapagliflozin 10 mg 02/21/24 08:00 02/21/24 10:10
Dapagliflozin (Farxiga) 10 Mg Tablet PO 03/20/24 07:59 10 mg
DAILY THADDEUS Administration
Dextrose 12.5 grams 02/20/24 19:43
Dextrose 50% (0.5 Grams/Ml) 50 Ml Syringe IV 03/19/24 19:42
[id number] PRN
hypoglycemia
Protocol
Glucagon 1 mg 02/20/24 19:43
Glucagon 1 Mg Vial IM 03/19/24 19:42
PRN PRN
hypoglycemia
Protocol
Insulin Glargine 20 units/ 0.2 mls @ 0 mls/hr 02/20/24 22:00 02/21/24 21:51
Device SC 03/19/24 21:59 0.2 mls
HS THADDEUS Administration
As Directed
Insulin Aspart 0 units 02/21/24 07:30 02/21/24 17:47
Insulin Aspart Moderate Resistance 300 Units/3 Ml Pen.Injctr SC 03/20/24 07:29 Not Given
AC THADDEUS
Protocol
Levothyroxine Sodium 25 mcg 02/21/24 06:00 02/22/24 06:28
Levothyroxine 25 Mcg Tablet PO 03/20/24 05:59 25 mcg
DAILY@0600 THADDEUS Administration
Losartan Potassium 50 mg 02/21/24 08:00 02/21/24 10:10
Losartan 50 Mg Tablet PO 03/20/24 07:59 50 mg
DAILY THADDEUS Administration
Metoprolol Succinate 25 mg 02/21/24 08:00 02/21/24 10:10
Metoprolol 25 Mg Extended Release Tablet PO 03/20/24 07:59 25 mg
DAILY THADDEUS Administration
Rosuvastatin Calcium 40 mg 02/22/24 08:00
Rosuvastatin (Crestor) 40 Mg Tablet PO 03/21/24 07:59
DAILY THADDEUS
[2024-02-22 08:18] LABS: Blood Urea Nitrogen 28 mg/dl (7-17); Calcium 9.4 mg/dl (8.4-10.2); Carbon Dioxide 27 mmol/L (22-30); Chloride 105 mmol/L (98-107); Estimated Creatinine Clearance 28 ml/min; Glucose 97 mg/dl (70-99); Potassium 4.4 mmol/L (3.5-5.1); Sodium 145 mmol/L (135-145); eGFR 32.81
[2024-02-22 08:21] LABS: Glucose - Point of Care 110 mg/dl (70-99)
[2024-02-22] MEDS: NOVOLOG FLEXPEN-MODERATE RESISTANCE SC ×2 (08:27→12:05)
[2024-02-22] MEDS: CRESTOR 40 MG PO (09:19)
[2024-02-22] MEDS: FARXIGA 10 MG PO (09:19)
[2024-02-22] MEDS: COZAAR 50 MG PO (09:19)
[2024-02-22] MEDS: PLAVIX 75 MG PO (09:24)
[2024-02-22] MEDS: TOPROL XL 25 MG PO (09:24)
[2024-02-22] MEDS: LOW STRENGTH ASPIRIN 81 MG PO (09:24)
--- NOTE | 2024-02-22 09:51 | W.PN.HOSP.TC ---
Today's Communication/Plan
-
DAPT and statins. CT of the head today. Rehab eval
Assessment / Plan
Assessment / Plan
Physical Exam
General: Comfortable and Conversant
HEENT: Moist mucous membranes and Atraumatic
Respiratory: Clear and Non Labored Respirations
Cardiac: S1/S2 and Regular Rhythm
GI: Soft and Non Tender
Musculoskeletal: No Clubbing and No Cyanosis
Skin: Warm and Dry
Neuro: Awake, Alert, Oriented, Facial Droop and Other (4/5 Strength RUE and RLE; 5/5 Strength LUE and LLE)
Psych: Calm
A/P:
Right Facial Droop with Right Sided Weakness, clinical concern for acute CVA
-Consult Neurology and appreciated input
-Continue Aspirin and Plavix and statin
-Unable to do brain MRI due to aneurysm coiling. Repeat CT of the head today and unremarkable findings.
-Discussed with patient via ecological modeler
-Check HgbA1c and FLP--> 6.5, and LDL 36
-Monitor Neuro-Checks
-PT OT and speech therapy eval. PT OT recommend acute rehab
-Discussed with daughter over the phone yesterday
-She would be a good candidate for acute rehab--> case filler for discharge disposition
ASCVD
-Continue aspirin
Diabetes Mellitus, Type II
-Check HgbA1c and resulted as above
-Continue Basaglar
-Monitor sugars and continue coverage insulin
Chronic Kidney Disease
-Unknown baseline creatinine, but outpatient records indicate stage 4
-Creatinine today 1.6
Essential Hypertension
-Hold HCTZ
-Continue losartan and metoprolol with hold parameters
Hyperlipidemia
-Continue rosuvastatin
Hypothyroidism
-Continue levothyroxine
Hx Brain Aneurysm s/p Coil
DVT proph: SCDs
Code Status: Full Code
Anticipated Discharge: 24 - 48 hours
Subjective/Interval History
-
Date of Service: February 22, 2024
Patient seen and examined. No new events.
Objective Data
-
Labs:
Laboratory Results
02/22/24
07:16
Sodium 145
Potassium 4.4
Chloride 105
Carbon Dioxide 27
BUN 28 H
Creatinine 1.6 H
Glucose 97
Calcium 9.4
Vital Signs:
Vital Signs
Temp Pulse Resp BP Pulse Ox
98.1 F 57 18 135/73 100
02/22/24 07:38 02/22/24 07:38 02/22/24 07:38 02/22/24 07:38 02/22/24 07:38
I&O
02/21/24 02/22/24 02/23/24
06:59 06:59 06:59
Intake Total 480 / 480
Balance 480 / 480
[2024-02-22 12:00] LABS: Glucose - Point of Care 136 mg/dl (70-99)
[2024-02-22 16:35] LABS: Glucose - Point of Care 185 mg/dl (70-99)
[2024-02-22] MEDS: NOVOLOG FLEXPEN-MODERATE RESISTANCE 1 UNITS SC (17:26)
[2024-02-22 20:58] LABS: Glucose - Point of Care 227 mg/dl (70-99)
[2024-02-22] MEDS: LANTUS 0.2 UNITS SC (21:25)
[2024-02-23] VITALS (7 sets, daily range): BP systolic 125–149; BP diastolic 47–84; PULSE 60; O2SAT 98
[2024-02-23] MEDS: SYNTHROID 25 MCG PO (05:57)
[2024-02-23 07:33] LABS: Glucose - Point of Care 126 mg/dl (70-99)
[2024-02-23] MEDS: NOVOLOG FLEXPEN-MODERATE RESISTANCE SC (07:57)
[2024-02-23] MEDS: COZAAR 50 MG PO (09:08)
[2024-02-23] MEDS: CRESTOR 40 MG PO (09:08)
[2024-02-23] MEDS: PLAVIX 75 MG PO (09:08)
[2024-02-23] MEDS: FARXIGA 10 MG PO (09:08)
[2024-02-23] MEDS: TOPROL XL 25 MG PO (09:09)
[2024-02-23] MEDS: LOW STRENGTH ASPIRIN 81 MG PO (09:09)
--- NOTE | 2024-02-23 09:46 | W.PN.HOSP.TC ---
Today's Communication/Plan
-
DAPT and statins. Rehab eval
Assessment / Plan
Assessment / Plan
Physical Exam
General: Comfortable and Conversant
HEENT: Moist mucous membranes and Atraumatic
Respiratory: Clear and Non Labored Respirations
Cardiac: S1/S2 and Regular Rhythm
GI: Soft and Non Tender
Musculoskeletal: No Clubbing and No Cyanosis
Skin: Warm and Dry
Neuro: Awake, Alert, Oriented, Facial Droop and Other (4/5 Strength RUE and RLE; 5/5 Strength LUE and LLE)
Psych: Calm
A/P:
Right Facial Droop with Right Sided Weakness, clinical concern for acute CVA
-Consult Neurology and appreciated input
-Continue Aspirin and Plavix and statin
-Unable to do brain MRI due to aneurysm coiling. Repeat CT of the head today and unremarkable findings.
-Discussed with patient via embossograph operator
-Check HgbA1c and FLP--> 6.5, and LDL 36
-Monitor Neuro-Checks
-PT OT and speech therapy eval. PT OT recommend acute rehab
-She would be a good candidate for acute rehab--> caser in for discharge disposition
-Updated daughter at bedside today
Bradycardia with mild pause but back to normal sinus rhythm
-Hold Toprol xl for now
-Obtain twelve-lead EKG
-Continue cardiac monitoring
-Obtain TSH and reflex
-
ASCVD
-Continue aspirin
Diabetes Mellitus, Type II
-Check HgbA1c and resulted as above
-Continue Basaglar
-Monitor sugars and continue coverage insulin
Chronic Kidney Disease
-Unknown baseline creatinine, but outpatient records indicate stage 4
-Creatinine last one 1.6
Essential Hypertension
-Hold HCTZ
-Continue losartan and metoprolol with hold parameters
Hyperlipidemia
-Continue rosuvastatin
Hypothyroidism
-Continue levothyroxine
Hx Brain Aneurysm s/p Coil
DVT proph: SCDs
Code Status: Full Code
Anticipated Discharge: Within 24 hours
Subjective/Interval History
-
Date of Service: February 23, 2024
Patient feels deficits about the same. Daughter reports some cognitive deficits and memory impairment.
Objective Data
-
Vital Signs:
Vital Signs
Temp Pulse Resp BP Pulse Ox
97.8 F 70 16 142/55 100
02/23/24 07:55 02/23/24 09:09 02/23/24 07:55 02/23/24 09:09 02/23/24 07:55
I&O
02/22/24 02/23/24 02/24/24
06:59 06:59 06:59
Intake Total 760 / 760
Balance 760 / 760
[2024-02-23 11:23] LABS: Glucose - Point of Care 262 mg/dl (70-99)
[2024-02-23] MEDS: NOVOLOG FLEXPEN-MODERATE RESISTANCE 5 UNITS SC (11:41)
[2024-02-23 17:34] LABS: Glucose - Point of Care 165 mg/dl (70-99)
[2024-02-23] MEDS: NOVOLOG FLEXPEN-MODERATE RESISTANCE 1 UNITS SC (17:36)
[2024-02-23 21:13] LABS: Glucose - Point of Care 225 mg/dl (70-99)
[2024-02-23] MEDS: MIRALAX 17 GRAMS PO (21:17)
[2024-02-23] MEDS: SENOKOT-S 1 TABLET PO (21:17)
[2024-02-23] MEDS: LANTUS 0.2 UNITS SC (21:17)
[2024-02-24] VITALS (9 sets, daily range): BP systolic 127–147; BP diastolic 47–69; PULSE 70–73; O2SAT 98
[2024-02-24] MEDS: SYNTHROID 25 MCG PO (05:46)
[2024-02-24 07:45] LABS: Glucose - Point of Care 115 mg/dl (70-99)
[2024-02-24] MEDS: NOVOLOG FLEXPEN-MODERATE RESISTANCE SC (08:19)
[2024-02-24] MEDS: PLAVIX 75 MG PO (08:51)
[2024-02-24] MEDS: LOW STRENGTH ASPIRIN 81 MG PO (08:51)
[2024-02-24] MEDS: SENOKOT-S 1 TABLET PO ×2 (08:51→20:14)
[2024-02-24] MEDS: COZAAR 50 MG PO (08:51)
[2024-02-24] MEDS: FARXIGA 10 MG PO (08:51)
[2024-02-24] MEDS: CRESTOR 40 MG PO (08:51)
[2024-02-24 09:03] LABS: % Basophils 0.8 % (0-2); % Eosinophils 3.9 % (0-6); % Immature Granulocytes 0.3 % (0-0.5); % Lymphocytes 26.6 % (20.5-51.1); % Monocytes 8.3 % (1.7-9.3); % Neutrophils 60.1 % (42.2-75.2); Absolute Basophils 0.1 10^3/uL (0-0.2); Absolute Eosinophils 0.3 10^3/uL (0-0.7); Absolute Lymphocytes 1.7 10^3/uL (1.2-3.4); Absolute Monocytes 0.5 10^3/uL (0.1-0.6); Absolute Neutrophils 3.8 10^3/uL (1.4-6.5); Hematocrit 29.7 % (37.0-47.0); Hemoglobin 10.3 g/dL (12.0-16.0); Mean Corp Hgb Conc. 34.7 g/dL (33.0-37.0); Mean Corpuscular Hgb 30.6 pg (27.0-31.0); Mean Corpuscular Volume 88.1 fL (81.0-99.0); Mean Platelet Volume 10.5 fL (7.4-10.4); Nucleated Red Blood Cells % 0 %; Platelet Count 168 10^3/uL (130-400); Red Blood Cell Count 3.37 10^6/uL (4.20-5.40); Red Cell Dist. Width 12.6 % (11.5-14.5); White Blood Cell Count 6.4 10^3/uL (4.8-10.8)
--- NOTE | 2024-02-24 09:04 | W.PN.HOSP.TC ---
Today's Communication/Plan
-
Please see beta-joyce. Continue DAPT and statins. Rehab eval.
Assessment / Plan
Assessment / Plan
Physical Exam
General: Comfortable and Conversant
HEENT: Moist mucous membranes and Atraumatic
Respiratory: Clear and Non Labored Respirations
Cardiac: S1/S2 and Regular Rhythm
GI: Soft and Non Tender
Musculoskeletal: No Clubbing and No Cyanosis
Skin: Warm and Dry
Neuro: Awake, Alert, Oriented, Facial Droop and Other (4/5 Strength RUE and RLE; 5/5 Strength LUE and LLE)
Psych: Calm
A/P:
Right Facial Droop with Right Sided Weakness, clinical concern for acute CVA
-Consult Neurology and appreciated input
-Continue Aspirin and Plavix and statin
-Unable to do brain MRI due to aneurysm coiling. Repeated CT of the head unremarkable for acute findings.
-Discussed with patient via global supply chain vice president today
-Check HgbA1c and FLP--> 6.5, and LDL 36
-Monitor Neuro-Checks
-PT OT and speech therapy eval. PT OT recommend acute rehab
-She would be a good candidate for acute rehab--> caser shoe parts for discharge disposition
-Updated daughter at bedside yesterday
Bradycardia with mild pause but back to normal sinus rhythm:
-Discontinue Toprol xl--> she got a dose of Toprol yesterday so need to let beta-joyce washout and reevaluate.
-Repeat twelve-lead EKG in a.m.
-Continue cardiac monitoring
-Update TSH
ASCVD
-Continue aspirin
Diabetes Mellitus, Type II
-Check HgbA1c and resulted as above
-Continue Basaglar
-Monitor sugars and continue coverage insulin
Chronic Kidney Disease
-Unknown baseline creatinine, but outpatient records indicate stage 4
-Creatinine last one 1.6
Essential Hypertension
-Hold HCTZ
-Continue losartan with hold parameters
Hyperlipidemia
-Continue rosuvastatin
Hypothyroidism
-Continue levothyroxine
-Update TSH and reflex
Hx Brain Aneurysm s/p Coil
DVT proph: SCDs
Code Status: Full Code
Anticipated Discharge: 24 - 48 hours
Subjective/Interval History
-
Date of Service: February 24, 2024
Patient feels better today. Neuro-deficits about the same. Afebrile.
Objective Data
-
Labs:
Laboratory Results
02/24/24
08:36
WBC 6.4
Hgb 10.3 L
Hct 29.7 L
Plt Count 168
Sodium Pending
Potassium Pending
Chloride Pending
Carbon Dioxide Pending
BUN Pending
Creatinine Pending
Glucose Pending
Calcium Pending
Vital Signs:
Vital Signs
Temp Pulse Resp BP Pulse Ox
98.0 F 59 14 144/59 99
02/24/24 07:55 02/24/24 08:51 02/24/24 07:55 02/24/24 08:51 02/24/24 07:55
I&O
02/23/24 02/24/24 02/25/24
06:59 06:59 06:59
Intake Total 760 / 760 720 / 720
Balance 760 / 760 720 / 720
[2024-02-24 09:08] LABS: Blood Urea Nitrogen 39 mg/dl (7-17); Calcium 9.7 mg/dl (8.4-10.2); Carbon Dioxide 22 mmol/L (22-30); Chloride 105 mmol/L (98-107); Estimated Creatinine Clearance 27 ml/min; Glucose 138 mg/dl (70-99); Potassium 4.8 mmol/L (3.5-5.1); Sodium 141 mmol/L (135-145)
[2024-02-24 09:41] LABS: TSH Reflex To Free T4 6.99 uIU/ml (0.47-4.68)
[2024-02-24 10:28] LABS: Free T4 1.14 ng/dl (0.78-2.19)
[2024-02-24 12:09] LABS: Glucose - Point of Care 251 mg/dl (70-99)
[2024-02-24] MEDS: NOVOLOG FLEXPEN-MODERATE RESISTANCE 5 UNITS SC (12:50)
[2024-02-24 16:31] LABS: Glucose - Point of Care 201 mg/dl (70-99)
[2024-02-24 17:08] LABS: Glucose - Point of Care 175 mg/dl (70-99)
[2024-02-24] MEDS: NOVOLOG FLEXPEN-MODERATE RESISTANCE 1 UNITS SC (18:12)
[2024-02-24] MEDS: TYLENOL 650 MG PO (20:13)
[2024-02-24 21:39] LABS: Glucose - Point of Care 185 mg/dl (70-99)
[2024-02-24] MEDS: LANTUS 0.2 UNITS SC (22:05)
[2024-02-25] VITALS (7 sets, daily range): BP systolic 115–153; BP diastolic 50–55
[2024-02-25] MEDS: SYNTHROID 25 MCG PO (05:48)
[2024-02-25 07:34] LABS: Glucose - Point of Care 150 mg/dl (70-99)
[2024-02-25] MEDS: PLAVIX 75 MG PO (08:35)
[2024-02-25] MEDS: CRESTOR 40 MG PO (08:36)
[2024-02-25] MEDS: SENOKOT-S 1 TABLET PO ×2 (08:36→20:11)
[2024-02-25] MEDS: LOW STRENGTH ASPIRIN 81 MG PO (08:36)
[2024-02-25] MEDS: COZAAR 50 MG PO (08:36)
[2024-02-25] MEDS: NOVOLOG FLEXPEN-MODERATE RESISTANCE 1 UNITS SC ×3 (08:36→17:13)
[2024-02-25] MEDS: FARXIGA 10 MG PO (08:36)
[2024-02-25 11:52] LABS: Glucose - Point of Care 180 mg/dl (70-99)
--- NOTE | 2024-02-25 14:48 | W.PN.HOSP.TC ---
Today's Communication/Plan
-
d/c planning for rehab
Assessment / Plan
Assessment / Plan
Left cerebral CVA
-Right Facial Droop with Right Sided Weakness
-Unable to do brain MRI due to aneurysm coiling. Repeated CT of the head unremarkable for acute findings.
-Check HgbA1c and FLP--> 6.5, and LDL 36
-PT OT and speech therapy eval. PT OT recommend acute rehab
-Neurology recommended aspirin and Plavix 21 days followed by Plavix only. maintain on statin as well.
Sinus bradycardia with pauses
-Patient asymptomatic and no reported palpitation/dizziness episode
-Patient was on Toprol-XL which has been discontinued
-TSH marginally elevated ~7, increase levothyroxine to 37.5mcg/d
ASCVD
-Continue aspirin
Diabetes Mellitus, Type II
-Hbga1c of 6.5
-Continue Basaglar
-Monitor sugars and continue coverage insulin
Chronic Kidney Disease stage IIIB
-Unknown baseline creatinine, but outpatient records indicate stage 4
-Creatinine last one 1.6
Essential Hypertension
-Hold HCTZ
-Continue losartan with hold parameters
Hyperlipidemia
-Continue rosuvastatin
Hypothyroidism
-TSH 7, free T4 1.5, increasing levothyroxine to 37.5 mcg/d (was on 25mcg/d)
Hx Brain Aneurysm s/p Coil
DVT proph: SCDs
Code Status: Full Code
Anticipated Discharge: Today
Subjective/Interval History
-
Date of Service: February 25, 2024
Denies having any issues overnight
Language line used during visit
Objective Data
-
Vital Signs:
Vital Signs
Temp Pulse Resp BP Pulse Ox
100.2 F 59 16 130/50 98
02/25/24 11:12 02/25/24 11:12 02/25/24 11:12 02/25/24 11:12 02/25/24 11:12
I&O
02/24/24 02/25/24 02/26/24
06:59 06:59 06:59
Intake Total 720 / 720 1200 / 1200
Balance 720 / 720 1200 / 1200
Review of Systems
-
Respiratory: Reports No Symptoms
Cardiac: Reports No Symptoms
Abdomen/GI: Reports No Symptoms
Physical Exam
-
General: No Apparent Distress and Comfortable
HEENT: Negative Oxygen
Respiratory: Clear to Auscultation
Cardiac: Regular Rhythm and S1/S2; Negative Murmur or Rub
GI: Soft, Nontender, Nondistended and Normal Bowel Sounds
Musculoskeletal: No Edema
Neuro: Awake, Alert, Oriented, No Motor Deficits and Nonfocal/Grossly Intact
Psych: Calm
[2024-02-25 16:49] LABS: Glucose - Point of Care 187 mg/dl (70-99)
[2024-02-25] MEDS: TYLENOL 650 MG PO (20:10)
--- NOTE | 2024-02-25 20:49 | PTCARENOTE ---
Pt daughter at bedside, assisted with translation and NIH assessment. Pt reports mild pain in lower back, given Tylenol, daughter assisted pt to bathroom and brushed teeth. Pt reports last BM 02/23. Pt asssited to bed and alarm activated, call [facility]
within reach
[2024-02-25 21:09] LABS: Glucose - Point of Care 225 mg/dl (70-99)
[2024-02-25] MEDS: LANTUS 0.2 UNITS SC (22:02)
[2024-02-26] VITALS (8 sets, daily range): BP systolic 102–149; BP diastolic 50–69; PULSE 74–79; O2SAT 97–99
--- NOTE | 2024-02-26 01:51 | PTCARENOTE ---
pt daughter at bedside this evening was under the impression from previous information from MDs that her coil was able to be permitted for MRI due to the type of material. Daughter also reports that although the symptoms her mother came in for this
admission she thinks they have been going on longer at home and resolving. She reports that she thought the symptoms were from her 'first waking up'.
[2024-02-26] MEDS: SYNTHROID 37.5 MCG PO (05:14)
[2024-02-26 07:23] LABS: Glucose - Point of Care 138 mg/dl (70-99)
[2024-02-26] MEDS: NOVOLOG FLEXPEN-MODERATE RESISTANCE SC (08:17)
[2024-02-26] MEDS: CRESTOR 40 MG PO (08:18)
[2024-02-26] MEDS: LOW STRENGTH ASPIRIN 81 MG PO (08:18)
[2024-02-26] MEDS: PLAVIX 75 MG PO (08:19)
[2024-02-26] MEDS: SENOKOT-S PO ×2 (08:19→20:36)
[2024-02-26] MEDS: FARXIGA 10 MG PO (08:19)
[2024-02-26] MEDS: COZAAR 50 MG PO (08:19)
--- NOTE | 2024-02-26 10:54 | CM ---
Patient is ready for discharge to Acute Rehab today; Physiatry consult is required by [facility] for consideration of [place] transfer. I spoke with Ana Lilia mcwilliams [place] who will contact Dr. Chavez to request consult.
Plan: CM will follow, awaiting Physiatry consult and once available, will contact [facility] for authorization.
[2024-02-26 12:14] LABS: Glucose - Point of Care 242 mg/dl (70-99)
[2024-02-26] MEDS: NOVOLOG FLEXPEN-MODERATE RESISTANCE 3 UNITS SC (12:34)
--- NOTE | 2024-02-26 12:45 | CON.MD ---
Consultation - Medical
-
Referring Provider: Dr. Eliel Smith
Chief Complaint:�Stroke
History of Present Illness:��78-year-old right-handed female with PMH (as below) presented to [facility] on 02/20/[address] of the head and CTA head/neck negative for any acute findings. She was noted with right facial
droop, mild dysarthria and right lower extremity drift. She was not a candidate for TNK or IAT. She was continued on aspirin and started on Plavix. Patient not able to get an MRI secondary to coiling of an aneurysm in the past. Seen by neurology
with most likely a left MCA territory infarct. Also noted with sinus bradycardia with pauses and metoprolol was held. Noted with an elevated TSH and levothyroxine increased to 37.5 mcg daily.
Used Mandarin chart further. Overall feeling weak on the right side and having some trouble with walking. Having some blurry vision, but okay otherwise. Denies any bowel or bladder concerns. Denies any swallowing concerns.
�
Past Medical History:�� L ICA supraclinoid aneurysm, previous left frontal, parietal-occipital, and left basal ganglia ischemic infarcts, HTN, HLD, CKD, NIDDM requiring insulin, CAD, osteoarthritis, obesity, carotid artery stenosis, thyroid nodule,
chronic back pain
Procedure History:��Stent/coil of L ICA supraclinoid aneurysm 2012 in [place], appendectomy
Family History:�Reviewed and noncontributory.�������������
�
Social History:��
Functional Level Premorbidly:�Independent with all activities��
Functional Level at Previous Facility: Min assist transfers, min assist ambulate 30 feet x 4 with rolling walker. Min assist to supervision for ADLs
�
Tobacco:�Denies all��
Alcohol:�Denies��
Drug use:�Denies��
�
Lives With:�Daughter and son-in-law
24-hour assistance available:�Yes
Number of floors:��2
# steps to enter:��1
# steps to second floor:�Full flight
Potential First Floor Set Up:�Yes
Driving:�No
Occupation:�Retired
Allergies:��
Allergy/AdvReac Type Severity Reaction Status Date / Time
No Known Allergies Allergy Verified 02/20/24 15:58
�
Review of Systems:��
Constitutional: (x) abNormal _tired
Eye: (x) abNormal _vision concerns since stroke
Ear/Nose/Throat: (x) Normal _
Respiratory: (x) Normal _
Cardiovascular: (x) Normal _
Gastrointestinal: (x) Normal _
Genitourinary: (x) Normal _
Musculoskeletal: (x) Normal _
Integumentary: (x) Normal _
Neurologic: (x) abNormal _stroke with right-sided weakness and vision concerns
Psychiatric: (x) Normal _
Endocrine: (x) Normal _
Hematologic/Lymphatic: (x) Normal _
Allergic/Immunologic: (x) Normal _
�
Medications:��
Active Current Visit Medication List
Category Date Time Status
Acetaminophen [Tylenol/Feverall] Med 02/20/24 19:43 Active
650 mg RECTAL Q4HPRN PRN
Acetaminophen [Tylenol] Med 02/20/24 19:43 Active
650 mg PO Q4HPRN PRN
Aspirin Chewable [Low Strength Aspirin] Med 02/21/24 08:00 Active
81 mg PO DAILY
Clopidogrel Bisulfate [Plavix] Med 02/21/24 08:00 Active
75 mg PO DAILY
Dapagliflozin [Farxiga] Med 02/21/24 08:00 Active
10 mg PO DAILY
Dextrose 50%-Water [Dextrose 50% Syringe] Med 02/20/24 19:43 Active
12.5 grams IV [id number] PRN
Docusate W/Senna [Senokot-S] Med 02/23/24 21:00 Active
1 tablet PO BID
Glucagon [GlucaGen] Med 02/20/24 19:43 Active
1 mg IM PRN PRN
Insulin Aspart Corrective Mod [Novolog Flexpen-Moderate Med 02/21/24 07:30 Active
Resistance]
See Protocol SC AC
Insulin Glargine Lantus [Lantus] 20 units Med 02/20/24 22:00 Active
Subcutaneous Insulin Syringe [Syringe-Insulin] 0 unit
SC HS
Levothyroxine [Synthroid] Med 02/25/24 09:00 Active
37.5 mcg PO DAILY@0600
Losartan [Cozaar] Med 02/21/24 08:00 Active
50 mg PO DAILY
Polyethylene Glycol Powder [Miralax] Med 02/23/24 20:13 Active
17 grams PO DAILY PRN
Rosuvastatin Calcium [Crestor] Med 02/22/24 08:00 Active
40 mg PO DAILY
Vitals:��
Temp Pulse Resp BP Pulse Ox
99.2 F 74 12 102/62 97
02/26/24 11:00 02/26/24 11:00 02/26/24 11:00 02/26/24 11:00 02/26/24 11:00
Height 5 ft 3 in
Actual Weight 75.296 kg
Body Mass Index (BMI) 29.4
�
Physical Exam:��
General Appearance/Observation: Well-developed, well-nourished female in no apparent distress.��
Pain/Comfort Assessment: Denies��
Mood/Affect: Appropriate��
�
Integumentary/Operative Site:��
�� Pressure Ulcer evaluation: absent over heels��
�
Eyes: Conjunctiva/Lids: normal���� Pupils: pupils equal round and reactive to light
Ears/Nose/Throat: oral mucosa moist,� throat clear.�������������Lips/Teeth/Gums: normal��
Neck: No muscle spasm or tenderness��
Cardiovascular: Heart: regular, no murmur��
Pulses: dorsalis pedis 2+ bilaterally��
Respiratory: Respiratory Effort/Chest Expansion: normal.�������Auscultation: Clear to auscultation bilaterally��
Gastrointestinal: abdomen not tender, no distension, normal abdominal bowel sounds
Genitourinary: No [place]��
Rectal Exam: Deferred��
Extremities:�Edema: None�Cyanosis: None�Trophic�changes: None
��
Neurology Exam:
Orientation: Alert, Oriented to self, Time, Place��
Memory: Intact for recent medical concerns
Comprehension: Intact
Two step command: Intact
Cranial Nerves:
�� CNII:�Pupillary light reflex: Intact����Visual Field: Appears to have some difficulty in the right lower quadrant
�� CN III, IV, : Extraocular muscles: Intact��
�� CN V:�Facial Sensation�at�Forehead: Intact ,�Maxilla: Intact,�Mandible: Intact
�� CN VII:�Facial movement: Slight right facial weakness
�� CN VIII:�Hearing: Normal
�� CN IX/X:�Speech & swallow: Normal�Position of Uvula: Midline
�� CN XI:�Shoulder shrug: Slight decreased on right
�� CN XII:�Tongue protrusion: Midline
Sensory:
�� Light touch: Intact in bilateral upper and lower extremities, no extinction to double simultaneous stimulation
�
Reflexes:
�� Biceps: 2+ bilaterally
�� Brachioradialis: 2+ bilaterally
�� Triceps: 2+ bilaterally
�� Patellar: 2+ bilaterally
�� Achilles: 2+ bilaterally
�� Babinski: Downgoing bilaterally
�� Clonus: None
�� Geremias: Negative bilaterally��
Cerebellar: Dysmetria/Ataxia: On right, not on left with single eye, has some trouble with both eyes open
Musculoskeletal: Motor: (Manual muscle scale 0-5)��
Muscle SA EF WE EE FF FA HF KE DF EHL PF
Right� 4 4 4 4 4 4 4 4 5 4 5
Left 5 5 5 5 5 5 5 5 5 5 5
�
Tone: Normal in all extremities��
Range of Motion: Passively within normal limits in all extremities��
�
Lab Results:��
Laboratory Data
02/24/24 08:36
02/24/24 08:36
PT 13.6 Sec (11.4-14.6) 02/20/24 16:23
INR 1.03 02/20/24 16:23
APTT 21.7 Sec (23.4-35.0) L 02/20/24 16:23
Total Bilirubin 0.7 mg/dl (0.2-1.3) 02/20/24 16:23
AST 40 U/L (14-36) H 02/20/24 16:23
ALT 29 U/L (0-35) 02/20/24 16:
Alkaline Phosphatase 73 U/L (38-126) 02/20/24 16:
Total Protein 8.0 g/dl (6.3-8.2) 02/20/24 16:
Albumin 4.6 g/dl (3.5-5.0) 02/20/24 16:
Diagnostic Results: As per HPI��
�
Assessment
78 y/o R-handed FP ( L ICA supraclinoid aneurysm, previous left frontal, parietal-occipital, and left basal ganglia ischemic infarcts, HTN, HLD, CKD, NIDDM requiring insulin, CAD, osteoarthritis, obesity, carotid artery stenosis, thyroid nodule,
chronic back pain) with 02/20/2024 right facial droop, mild dysarthria and right lower extremity drift from presumed left MCA territory infarct, sinus bradycardia with pauses and metoprolol was held, elevated TSH with increased levothyroxine��test
resulting in ADL, speech, and ambulatory dysfunction.
Plan�
PM&R PT/OT to increase independence with ADLs, improve balance, coordination, endurance, strength, mobility, community reintegration, decreased burden of care on others and family education.��
�
CVA: Secondary prophylaxis with aspirin And Plavix for 21 days (through 03/11/2024) with continuation of Plavix�long-term, statin, and blood pressure control (SBP less than 180 and diastolic less than 100 to participate with therapy for ischemic
stroke). Continue to monitor neurologic status.��
Right dominant hemiparesis: High risk for falls and sliding out of chair/bed. Safety reinforced.��
- Avoid using affected arm to help lift or pull patient as this will cause trauma to the shoulder.
Right lower quadrant visual deficit: makes patient at increased risk for falls.� Will need therapy to work on scanning of environment for safe navigation.��
�
HTN: Losartan 50 mg daily, monitor closely��
HLD: Statin��
Bradycardia with pauses:�Monitor with beta-joyce held�������������������������������������������
Uncontrolled DM II: Accu-Cheks, insulin sliding scale, lantus.��Farxiga
CKD with diabetic nephropathy: Monitor
Hypothyroidism: levothyroxine increased
Normocytic anemia: No active bleeding. B12 and folate normal. Ferritin elevated..� Continue to monitor.��
Psych: Psychology consult.� Monitor mood, medications as needed.��
Skin: monitor for pressure sores/rashes/lesions.��
FEN:�Carb controlled diet
Pain: acetaminophen as needed.��
Bowel: Colace and Senna, PRN bisacodyl.��
Bladder: Time void, PVRs, PRN straight cath.��
GI Prophylaxis: Pantoprazole��
DVT Prophylaxis: Mechanical and suggest Lovenox 40 mg at night if okay with neurology.��
Pulmonary: Incentive spirometry��
Safety: Continue to reinforce assistance with all transfers.��
Code Status:� Full code
Dispo�(date/plan/equipment needs): Home with family care.��
Functional and Medical Goals:�Modified Independent with ADL�s, ambulation, transfers��
Discharge Destination: Acute inpatient rehabilitation�
Summary of recommendations:
- Discharge Destination: Acute inpatient rehabilitation
CVA: Secondary prophylaxis with aspirin And Plavix for 21 days (through 03/11/2024) with continuation of Plavix�long-term, statin, and blood pressure control (SBP less than 180 and diastolic less than 100 to participate with therapy for ischemic
stroke). Continue to monitor neurologic status.��
Right dominant hemiparesis: High risk for falls and sliding out of chair/bed. Safety reinforced.��
- Avoid using affected arm to help lift or pull patient as this will cause trauma to the shoulder.
Right lower quadrant visual deficit: makes patient at increased risk for falls.� Will need therapy to work on scanning of environment for safe navigation.��
Bradycardia with pauses:�Monitor with beta-joyce held�������������������������������������������
Uncontrolled DM II: Accu-Cheks, insulin sliding scale, lantus.��Farxiga
Hypothyroidism: levothyroxine increased
Normocytic anemia: No active bleeding. B12 and folate normal. Ferritin elevated.� Continue to monitor.��
Bowel: Colace and Senna, PRN bisacodyl.��
Bladder: Time void, PVRs, PRN straight cath.��
Thank you for allowing me to care for your patient. Please contact me with any questions or concerns.
--- NOTE | 2024-02-26 13:11 | W.PN.HOSP.TC ---
Today's Communication/Plan
-
physiatry consult
[facility] placement
Assessment / Plan
Assessment / Plan
Left cerebral CVA
-Right Facial Droop with Right Sided Weakness
-Unable to do brain MRI due to aneurysm coiling. Repeated CT of the head unremarkable for acute findings.
-Check HgbA1c and FLP--> 6.5, and LDL 36
-PT OT and speech therapy eval. PT OT recommend acute rehab
-Neurology recommended aspirin and Plavix 21 days followed by Plavix only. maintain on statin as well.
Sinus bradycardia with pauses
-Patient asymptomatic and no reported palpitation/dizziness episode
-Patient was on Toprol-XL which has been discontinued
-TSH marginally elevated ~7, increase levothyroxine to 37.5mcg/d
ASCVD
-Continue aspirin
Diabetes Mellitus, Type II
-Hbga1c of 6.5
-Continue Basaglar
-Monitor sugars and continue coverage insulin
Chronic Kidney Disease stage IIIB
-Unknown baseline creatinine, but outpatient records indicate stage 4
-Creatinine last one 1.6
Essential Hypertension
-Hold HCTZ
-Continue losartan with hold parameters
Hyperlipidemia
-Continue rosuvastatin
Hypothyroidism
-TSH 7, free T4 1.5, increasing levothyroxine to 37.5 mcg/d (was on 25mcg/d)
Hx Brain Aneurysm s/p Coil
DVT proph: SCDs
Code Status: Full Code
Anticipated Discharge: Within 24 hours
Subjective/Interval History
-
Date of Service: February 26, 2024
no complains overnight
Objective Data
-
Vital Signs:
Vital Signs
Temp Pulse Resp BP Pulse Ox
99.2 F 74 12 102/62 97
02/26/24 11:00 02/26/24 11:00 02/26/24 11:00 02/26/24 11:00 02/26/24 11:00
I&O
02/25/24 02/26/24 02/27/24
06:59 06:59 06:59
Intake Total 1200 / 1200 840 / 840
Balance 1200 / 1200 840 / 840
Review of Systems
-
Unable to obtain full review of systems at this time due to: Language Barrier
Physical Exam
-
General: No Apparent Distress and Comfortable
HEENT: Negative Oxygen
Respiratory: Clear to Auscultation
Cardiac: Regular Rhythm and S1/S2; Negative Murmur or Rub
GI: Soft, Nontender, Nondistended and Normal Bowel Sounds
Musculoskeletal: No Edema
Neuro: Awake, Alert, Oriented, No Motor Deficits and Nonfocal/Grossly Intact
Psych: Calm
[2024-02-26 16:25] LABS: Glucose - Point of Care 312 mg/dl (70-99)
[2024-02-26] MEDS: TYLENOL 650 MG PO (16:57)
[2024-02-26] MEDS: NOVOLOG FLEXPEN-MODERATE RESISTANCE 7 UNITS SC (16:59)
[2024-02-26 20:57] LABS: Glucose - Point of Care 144 mg/dl (70-99)
[2024-02-26] MEDS: LANTUS 0.2 UNITS SC (21:04)
[2024-02-27 03:18] VITALS: BP 142/53
[2024-02-27] MEDS: SYNTHROID 37.5 MCG PO (05:22)
--- NOTE | 2024-02-27 05:32 | DOWNTIME ---
There was a [employer] [place] Client [employer] Downtime on 02/27/2024 from 0100 to 02/27/2024 at 0300. Downtime documentation of patient's care, including medication administrations, has been reconciled in the electronic record per guidelines. Refer to the
patient's paper chart under the miscellaneous tab to see printed paper medication records and downtime forms.
[2024-02-27 07:00] VITALS: BP 131/58
[2024-02-27] MEDS: NOVOLOG FLEXPEN-MODERATE RESISTANCE SC ×2 (07:04→16:43)
[2024-02-27 07:26] LABS: Glucose - Point of Care 137 mg/dl (70-99)
[2024-02-27] MEDS: COZAAR 50 MG PO (08:45)
[2024-02-27] MEDS: LOW STRENGTH ASPIRIN 81 MG PO (08:45)
[2024-02-27] MEDS: CRESTOR 40 MG PO (08:45)
[2024-02-27] MEDS: FARXIGA 10 MG PO (08:46)
[2024-02-27] MEDS: PLAVIX 75 MG PO (08:46)
[2024-02-27] MEDS: SENOKOT-S PO ×2 (08:46→21:46)
--- NOTE | 2024-02-27 09:50 | CM ---
Prior authorization request for Acute Rehab at [facility] submitted via fax to [employer]. No option for verbal authorization; CM to await response from [employer] for ARF admission authorization.
[2024-02-27 11:00] VITALS: BP 100/54
[2024-02-27 11:13] VITALS: BP 130/59
[2024-02-27 11:58] LABS: Glucose - Point of Care 242 mg/dl (70-99)
[2024-02-27] MEDS: NOVOLOG FLEXPEN-MODERATE RESISTANCE 2 UNITS SC (12:40)
--- NOTE | 2024-02-27 14:22 | W.PN.HOSP.TC ---
Today's Communication/Plan
-
Discharge planning for acute rehab
medically stable for d/c
Assessment / Plan
Assessment / Plan
Left cerebral CVA
-Right Facial Droop with Right Sided Weakness
-Unable to do brain MRI due to aneurysm coiling. Repeated CT of the head unremarkable for acute findings.
-Check HgbA1c and FLP--> 6.5, and LDL 36
-PT OT and speech therapy eval. PT OT recommend acute rehab
-Neurology recommended aspirin and Plavix 21 days followed by Plavix only. maintain on statin as well.
Sinus bradycardia with pauses
-Patient asymptomatic and no reported palpitation/dizziness episode
-Patient was on Toprol-XL which has been discontinued
-TSH marginally elevated ~7, increase levothyroxine to 37.5mcg/d
ASCVD
-Continue aspirin
Diabetes Mellitus, Type II
-Hbga1c of 6.5
-Continue Basaglar
-Adding novolog 3 U AC for BG control. will increase dose as needed
Chronic Kidney Disease stage IIIB
-Unknown baseline creatinine, but outpatient records indicate stage 4
-Creatinine last one 1.6
Essential Hypertension
-Hold HCTZ
-Continue losartan with hold parameters
Hyperlipidemia
-Continue rosuvastatin
Hypothyroidism
-TSH 7, free T4 1.5, increasing levothyroxine to 37.5 mcg/d (was on 25mcg/d)
Hx Brain Aneurysm s/p Coil
DVT proph: SCDs
Code Status: Full Code
Anticipated Discharge: Today
Subjective/Interval History
-
Date of Service: February 27, 2024
no complains overnight
Objective Data
-
Vital Signs:
Vital Signs
Temp Pulse Resp BP Pulse Ox
98.1 F 78 16 100/54 99
02/27/24 11:00 02/27/24 11:00 02/27/24 11:00 02/27/24 11:00 02/27/24 11:00
I&O
02/26/24 02/27/24 02/28/24
06:59 06:59 06:59
Intake Total 840 / 840 150 / 150
Balance 840 / 840 150 / 150
Review of Systems
-
Unable to obtain full review of systems at this time due to: Language Barrier
Physical Exam
-
General: No Apparent Distress and Comfortable
HEENT: Negative Oxygen
Respiratory: Clear to Auscultation
Cardiac: Regular Rhythm and S1/S2; Negative Murmur or Rub
GI: Soft, Nontender and Nondistended
Musculoskeletal: No Edema
Neuro: Awake and Alert
Psych: Calm
[2024-02-27 15:34] VITALS: BP 139/63
[2024-02-27 16:39] LABS: Glucose - Point of Care 136 mg/dl (70-99)
[2024-02-27] MEDS: NOVOLOG FLEXPEN 3 UNITS SC (16:45)
[2024-02-27 21:32] LABS: Glucose - Point of Care 171 mg/dl (70-99)
[2024-02-27] MEDS: LANTUS 0.2 UNITS SC (23:18)
[2024-02-27 23:22] VITALS: BP 126/53
[2024-02-28] MEDS: SYNTHROID 37.5 MCG PO (06:11)
[2024-02-28 07:30] VITALS: BP 149/61
[2024-02-28 08:05] LABS: Glucose - Point of Care 131 mg/dl (70-99)
--- NOTE | 2024-02-28 08:26 | VATNOTE ---
During routine assessment, swelling noted to IV site in pt's right antecubital fossa. Pt withdrew and grimaced upon palpation. IV site discontinued and heat applied. 2nd IV site remains intact and without s/s infiltration or phlebitis.
[2024-02-28] MEDS: TOPROL XL 12.5 MG PO (08:34)
[2024-02-28] MEDS: CRESTOR 40 MG PO (08:34)
[2024-02-28] MEDS: NOVOLOG FLEXPEN 3 UNITS SC ×2 (08:34→12:37)
[2024-02-28] MEDS: FARXIGA 10 MG PO (08:34)
[2024-02-28] MEDS: COZAAR 50 MG PO (08:34)
[2024-02-28] MEDS: PLAVIX 75 MG PO (08:34)
[2024-02-28] MEDS: LOW STRENGTH ASPIRIN 81 MG PO (08:34)
[2024-02-28] MEDS: NOVOLOG FLEXPEN-MODERATE RESISTANCE SC (08:35)
[2024-02-28] MEDS: SENOKOT-S PO (08:38)
--- NOTE | 2024-02-28 10:34 | CM ---
Addendum entered by Liyah Gibbs 02/28/24 14:04:
[facility] authorization [id number]; NRD 03/04/2024
Addendum entered by Liyah Gibbs 02/28/24 12:22:
[facility] Report:[phone]
[facility]
Original Note:
Acute Rehab authorization received for [facility]. Bed available for transfer. DIMPLE called and spoke with Kelechi's daughter, Nallely, to make her aware that transfer to [facility] will be today. She is aware of the location for [facility] and will
be visiting later today, after 5PM.
Plan: Transfer to [facility]. Home Care services recommended at discharge; Nallely is agreeable to same.
[2024-02-28 11:15] VITALS: BP 99/62
[2024-02-28 11:41] LABS: Glucose - Point of Care 182 mg/dl (70-99)
[2024-02-28] MEDS: NOVOLOG FLEXPEN-MODERATE RESISTANCE 1 UNITS SC (12:37)
--- NOTE | 2024-02-28 14:08 | W.PN.HOSP.TC ---
Today's Communication/Plan
-
d/c acute rehab
Assessment / Plan
Assessment / Plan
Left cerebral CVA
-Right Facial Droop with Right Sided Weakness
-Unable to do brain MRI due to aneurysm coiling. Repeated CT of the head unremarkable for acute findings.
-Check HgbA1c and FLP--> 6.5, and LDL 36
-PT OT and speech therapy eval. PT OT recommend acute rehab
-Neurology recommended aspirin and Plavix 21 days followed by Plavix only. maintain on statin as well.
Sinus bradycardia with pauses
-Patient asymptomatic and no reported palpitation/dizziness episode
-Patient was on Toprol-XL which has been discontinued
-TSH marginally elevated ~7, increase levothyroxine to 37.5mcg/d
ASCVD
-Continue aspirin
Diabetes Mellitus, Type II
-Hbga1c of 6.5
-Continue Basaglar
-Adding novolog 3 U AC for BG control. will increase dose as needed
Chronic Kidney Disease stage IIIB
-Unknown baseline creatinine, but outpatient records indicate stage 4
-Creatinine last one 1.6
Essential Hypertension
-Hold HCTZ
-Continue losartan with hold parameters
Hyperlipidemia
-Continue rosuvastatin
Hypothyroidism
-TSH 7, free T4 1.5, increasing levothyroxine to 37.5 mcg/d (was on 25mcg/d)
Hx Brain Aneurysm s/p Coil
DVT proph: SCDs
Code Status: Full Code
More than 30 minutes spent in discharge including
Final examination of the patient
Summarizing hospital stay
Instructions for continuing care to all relevant caregivers
Preparation of discharge records, prescriptions, and referral forms
Total time spent (in minutes): 38 mins
Anticipated Discharge: Today
Subjective/Interval History
-
Date of Service: February 28, 2024
no new issues overnight
Objective Data
-
Vital Signs:
Vital Signs
Temp Pulse Resp BP Pulse Ox
98.4 F 116 18 99/62 98
02/28/24 11:15 02/28/24 11:15 02/28/24 11:15 02/28/24 11:15 02/28/24 11:15
I&O
02/27/24 02/28/24 02/29/24
06:59 06:59 06:59
Intake Total 150 / 150 960 / 960
Balance 150 / 150 960 / 960
Review of Systems
-
Unable to obtain full review of systems at this time due to: Language Barrier
All other systems: Reviewed and negative
Physical Exam
-
General: Comfortable
HEENT: Negative Oxygen
Respiratory: Clear to Auscultation
Cardiac: Regular Rhythm and S1/S2; Negative Murmur or Rub
GI: Soft, Nontender and Nondistended
Musculoskeletal: No Edema
Neuro: Awake, Alert, Oriented, No Motor Deficits and Nonfocal/Grossly Intact
Psych: Calm
[2024-02-28 16:34] LABS: Glucose - Point of Care 151 mg/dl (70-99)
== END 2024-02-28 13:48 | DRG 65 ==
LOC: 4 EAST ACU 08:53
PROVIDERS: Emergency Medicine; Hospitalist; Physician Assistant Medical; Registered Nurse; ADMITTING PHYSICIAN Hospitalist; ATTENDING PHYSICIAN Hospitalist; CONSULT PHYSICIAN Physical Medicine & Rehabilitation; EMERGENCY PHYSICIAN Emergency Medicine; FAMILY PHYSICIAN Family Medicine; OTHER PHYSICIAN Psychiatry & Neurology Neurology
DX: I63.512 Cerebral infarction due to unspecified occlusion or stenosis of left middle cerebral artery (principal); G81.91 Hemiplegia, unspecified affecting right dominant side; N18.4 Chronic kidney disease, stage 4 (severe); E11.22 Type 2 diabetes mellitus with diabetic chronic kidney disease; D63.1 Anemia in chronic kidney disease; I12.9 Hypertensive chronic kidney disease with stage 1 through stage 4 chronic kidney disease, or unspecified chronic kidney disease; E03.9 Hypothyroidism, unspecified; E04.1 Nontoxic single thyroid nodule; E66.9 Obesity, unspecified; Z68.29 Body mass index [BMI] 29.0-29.9, adult; R29.703 NIHSS score 3; R29.706 NIHSS score 6; R29.810 Facial weakness; R47.1 Dysarthria and anarthria; H53.8 Other visual disturbances; R00.1 Bradycardia, unspecified; E78.00 Pure hypercholesterolemia, unspecified; I25.10 Atherosclerotic heart disease of native coronary artery without angina pectoris; G89.29 Other chronic pain; M54.9 Dorsalgia, unspecified; Z79.02 Long term (current) use of antithrombotics/antiplatelets; Z79.4 Long term (current) use of insulin; Z79.82 Long term (current) use of aspirin; Z79.84 Long term (current) use of oral hypoglycemic drugs; Z79.890 Hormone replacement therapy; Z79.899 Other long term (current) drug therapy; Z86.73 Personal history of transient ischemic attack (TIA), and cerebral infarction without residual deficits; Z86.79 Personal history of other diseases of the circulatory system; Z87.440 Personal history of urinary (tract) infections; Z82.49 Family history of ischemic heart disease and other diseases of the circulatory system
CPT/HCPCS: 70450; 70496; 70498; 80048; 80053; 80061; 81003; 81015; 82607; 82728; 82746; 82962; 83036; 83735; 84439; 84443; 84484; 85025; 85027; 85610; 85652; 85730; 86803; 92507; 92523; 92610; 93005; 97116; 97129; 97162; 97167; 97530; 97535; 99285; Q9967

== ENCOUNTER 2024-04-11 23:04 | Inpatient (IN) | payer OTHER, SELFPAY ==
[2024-04-11 20:02] VITALS: BMI 32.6
[2024-04-11 20:06] VITALS: BP 164/78
[2024-04-11 20:24] VITALS: BP 158/57
--- NOTE | 2024-04-11 20:57 | ED.GENMED ---
History of Present Illness
General
Chief Complaint: Fever
Source: patient and family
Time Seen by Provider: 04/11/24 20:45
History of Present Illness
History of Present Illness:
78-year-old female who presents emergency department after having had a stroke in February. She then went to [facility] for 2 weeks, and has been home for about 4 weeks with a home RN. According to her daughter who is now bedside, she has been
recovering well, able to do many of her ADLs, etc. This morning, she was able to shower herself without difficulty. She did have an episode of hypoglycemia last night, but her blood sugar this morning was 139. However, throughout the day, was
patient was noted to be gradually appearing to move very slowly. Daughter states she could walk but it was taking her a very long time to do that, also noted when she was feeding herself. Her blood sugar was then noted to be 84 and she was given
more food. However, daughter got concerned that this may be related to something besides hypoglycemia which prompted her visit here. She was unaware of the fever. Patient denies any specific complaints. There is no recent cough, sore throat,
fever, chest pain, shortness of breath, vomiting, urinary complaints. No new numbness tingling or weakness. Patient does have rhinorrhea.
Past History
Past History
ED Past Medical History: CAD, CVA, HTN, Hypercholesterolemia, IDDM and Other (Brain aneurysm, kidney stones)
ED Past Surgical History: Appendectomy and Brain (coil for aneurysm 2011)
Social History
Tobacco: Non-smoker
Alcohol: None
Drug: None
Living: alone
Family History
Family History: Other (Reviewed and noncontributory)
Phy Exam
Physical Exam
Physical Exam:
GENERAL: Alert , in no apparent distress
EYE: pupils equal and reactive
NECK: Supple, no significant adenopathy.
ENT: o/p clr, mmm.
CARDIAC: Regular rate and rhythm .
LUNGS: Clear breath sounds bilaterally, no acute respiratory distress, no wheezes/rales/rhonchi
ABDOMEN: Soft, without focal tenderness, no r/g, no cvat
NEUROLOGICAL: Alert and oriented, [id number] normal although very slow to perform, no facial droop, speech clear, motor intact throughout, sensory intact to light touch
SKIN: Warm and dry, skin intact.
MUSCULOSKELETAL: No edema, well perfused.
PSYCH: Normal and appropriate interaction.
Sepsis
Sepsis Screening
Sepsis Assessment: Sepsis
Sepsis Screen
Sepsis Screen: Sepsis
Date: 04/12/24
Time: 17:08
Course
Orders/Labs/Results
Orders:
Orders
04/11/24 20:05
Electrocardiogram (*1) Urgent
Reason for Study: Other
Other Reason for Exam: Possible Sepsis
EKG- Treatment ONCE
O2 Therapy [RESP] Urgent
Titrate/Wean O2 to maintain O2 sat greater than (%): 93
Special Instructions: TO MAINTAIN CONTINUOUS O2 SATS > OR = 93%
Pulse Ox/cont/shift [RESP] Urgent
Quantity: 1
Special Instructions: CONTINUOUS
04/11/24 20:56
Acetaminophen [Tylenol] 1,000 mg PO NOW STA
CR Chest - 2 Views Urgent
Comment:
Reason For Exam: fever
04/11/24 21:15
COVID-19 Antigen Urgent
Source: Nasal Swab
Complete Blood Count/With Diff Urgent
Comprehensive Metabolic Panel Urgent
Lactic Acid Q4H
Comment: ON ICE, CANCEL 2ND ORDER IF FIRST LACTIC ACID LEVEL <2
Urinalysis Reflex To Culture Urgent
Date Specimen was Collected: 04/11/24
Time Specimen was Collected: 20:05
Influenza A+B Rapid Molecular Stat
REBECCA Source: Nasal Swab
Specimen Description:
04/11/24 21:36
0.9% Sodium Chloride 1000 ml [Nss] 2,400 ml IV NOW STA
04/11/24 22:07
Piperacillin/Tazo 4.5 Gram [Zosyn] 4.5 gram in 100 ml IV NOW
04/11/24 22:54
Admit/Transfer Patient As Directed
Co-Sign Provider:
Level of Care: Inpatient admission
Assign to:: Telemetry
Physician / Group: Ubaldo
Diagnosis: SIRS
Reason for Telemetry: Arrhythmia
Date to Stop Telemetry: 04/14/24
Time to Stop Telemetry: 11:00
Reason for Hospitalization: SIRS
Expected length of stay greater than two midnights?: Yes
ELOS- Estimated Length of Stay in days: 3
I certify the patient meets the requirements for IP care: Yes
PRN Pain Medication Management As Directed
May give lesser potent ordered pain med per pt: Yes
preference::
Protocol:: Medication orders for pain may be administered in a
manner that supports deferring to patient preference
when the pt is:
- Requesting an ordered lesser potent pain medication.
Least to most potent pain medications are defined
as: acetaminophen < NSAID < tramadol < opioids
(morphine, oxycodone, hydromorphone).
- Requesting a lesser dose of the same medication IF
ORDERED.
- Requesting a less intrusive route of administration
if both routes are prescribed by the provider (PO <
IV).
04/11/24 22:56
Code Status As Directed
Resuscitation Status: Full Code
04/12/24 00:03
CT Head W/o Iv Contrast Urgent
Reason For Exam: Altered Mental Status
04/12/24 00:22
Lactic Acid Q4H
Comment: ON ICE, CANCEL 2ND ORDER IF FIRST LACTIC ACID LEVEL <2
04/12/24 01:20
Acetaminophen [Tylenol] 650 mg PO Q4HPRN PRN
Dextrose 50%-Water [Dextrose 50% Syringe] 12.5 grams IV [id number] PRN
Glucagon [GlucaGen] 1 mg IM PRN PRN
04/12/24 01:20
Consult Notification Routine
Specialty to Notify: Infectious Disease
Date consulting provider notified: 04/12/24
Time consulting provider notified: 08:02
Notified:: Provider
INFECTIOUS DISEASE CONSULT Routine
Consulting Provider: Maryann Schwartz
Was physician already notified: No
Reason for consult: Fever - ? source
Activity As Directed
Activity Level: Ambulate
With Assistance
Bedside Glucose Monitoring As Directed
Frequency: AC&HS
Additional Instructions:: Change to q6h if pt on TPN, tube feeding or not eating
EKG with chest pain [ECG as needed] As Directed
ECG as needed for:: Chest Pain
I/O [Intake/ Output] As Directed
Frequency: Per unit guidelines
Neurological Checks As Directed
Frequency: q4h
Orthostatic Vital Signs As Directed
Orthostatic VS Frequency: BID
Pneumatic Compression Sleeves As Directed
Type: Knee high
Precautions As Directed
Type of Precautions: Aspiration
Vital Signs As Directed
Frequency: Per unit guidelines
Oxygen Therapy [O2 Therapy] [RESP] Routine
Titrate/Wean O2 to maintain O2 sat greater than (%): 94
Ot Eval And Treat Routine
PT Consult [Pt Eval And Treat] Routine
Activity Level: Ambulate
With Assistance
Speech Therapy Eval & Treat Routine
DX Deep Vein Thrombosis Video Routine
04/12/24 06:00
Levothyroxine [Synthroid] 37.5 mcg PO QD@0600
Piperacillin/Tazo 2.25 Gram [Zosyn] 2.25 grams in 50 ml IV Q6H
04/12/24 06:10
Basic Metabolic Panel IN AM
Complete Blood Count/No Diff IN AM
LFT [Owxya-Urpp-Fmhzcnx] IN AM
04/12/24 07:30
Insulin Aspart Corrective Mod [Novolog Flexpen-Moderate Resistance] See Protocol SC AC
04/12/24 08:00
Amlodipine [Norvasc] 2.5 mg PO DAILY
Clopidogrel Bisulfate [Plavix] 75 mg PO DAILY
Pantoprazole [Protonix] 40 mg PO DAILY
Polyethylene Glycol Powder [Miralax] 17 grams PO DAILY
Rosuvastatin Calcium [Crestor] 40 mg PO DAILY
04/14/24 11:00
DC Protocol for Telemetry ONCE
Abnormal Lab Results
04/11/24
21:15
WBC 16.2 H 10^3/uL
(4.8-10.8)
RBC 3.11 L 10^6/uL
(4.20-5.40)
Hgb 9.5 L g/dL
(12.0-16.0)
Hct 27.9 L %
(37.0-47.0)
Abs Immat Gran (auto) 0.1 H 10^3/uL
(0-0.05)
Absolute Neuts (auto) 14.0 H 10^3/uL
(1.4-6.5)
Absolute Lymphs (auto) 1.0 L 10^3/uL
(1.2-3.4)
Absolute Monos (auto) 1.0 H 10^3/uL
(0.1-0.6)
Immature Gran % 0.6 H %
(0-0.5)
Neutrophils % 86.3 H %
(42.2-75.2)
Lymphocytes % 6.3 L %
(20.5-51.1)
BUN 28 H mg/dl
(7-17)
Creatinine 1.5 H mg/dL
(0.6-1.0)
Glucose 285 H mg/dl
(70-99)
AST 58 H U/L
(14-36)
ALT 37 H U/L
(0-35)
Urine Glucose 3+ A
(Negative)
04/11/24 21:15
04/11/24 21:15
Vital Signs
Initial and Last Documented VS:
Initial Vital Signs
Temp Pulse Resp BP Pulse Ox
102.2 F H 105 20 164/78 94
04/11/24 20:06 04/11/24 20:06 04/11/24 20:06 04/11/24 20:06 04/11/24 20:06
Last Documented Vital Signs
Temp Pulse Resp BP Pulse Ox
98.8 F 63 20 119/51 97
04/12/24 15:25 04/12/24 15:25 04/12/24 15:25 04/12/24 15:25 04/12/24 15:25
*Critical Care Note
Total Time (30-74mins, 75-104mins- exclusive of procedures): 30
Update Note
Update Note:
Patient presents to the Emergency Department with ___generalized weakness
Number and Complexity of Problems Addressed at the Encounter
� Chronic conditions affecting care:
� Acute Exacerbation and/or Progression of Chronic Illness:
� Differential Diagnosis includes: But not limited to dehydration, sepsis/infection, UTI, etc. etc.
Amount and/or Complexity of Data to be Reviewed and Analyzed
� I performed an independent evaluation of and my interpretation is:
EKG: Read by me, sinus tachycardia, normal axis, no acute ischemia
CT:
Xrays:
Laboratory Studies: Leukocytosis with shift, slightly worsening of baseline anemia
Other:
� Review of other/old records reveals: Patient admitted February 2024 and diagnosed clinically with a left MCA stroke which presented as slurred speech and right upper extremity/facial weakness
� Clinical information was obtained by an independent historian:
� Prescriptions/Medications Considered but not given:
� Further testing considered but not performed:
Risk of Complications and/or Morbidity or Mortality of Patient Management
� Social determinants of health affecting care:
� Discussion with other providers (PCP, Hospitalists, Consultants, etc):
� Escalation of care including admission/observation vs risk of discharge considered: 10:08 PM reassessment, no new findings, blood pressure remained stable, heart rate now in the mid 80s. Findings reviewed, patient appears to
be septic/SIRS positive criteria, unknown etiology, chest x-ray not impressive, urine not convincing. No focal findings noted, abdomen soft and nontender, no nuchal rigidity photophobia, etc. 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 Will begin antibiotics and
admit for further care, 30 cc/kg bolus ordered.
ED Attending Note
-
Portions of this chart may have been created with voice recognition software.� Occasional wrong word or��sound alike� substitutions may have occurred due to the inherent limitations of voice recognition software.
Discharge Plan
Departure
Patient Disposition: Admit
Date of Disposition: 04/11/24
Time of Disposition: 22:09
Presentation/result/management discussed w/ accepting MD/DO: Hospitalist
Condition: Fair
Discharge Problem:
SIRS (systemic inflammatory response syndrome)
Interventions
Interventions:
*Risk Screen - Suicide Last Done: 04/12/24 01:46
*General Assessment Last Done: 04/11/24 20:41
*ED COVID-19 Vaccine History Last Done: 04/12/24 01:30
*Nursing Disposition Last Done: 04/12/24 01:16
ED-Skin Assessment Last Done: 04/11/24 20:42
ED- Neurological Assessment Last Done: 04/11/24 20:42
Discharge Date and Time
Discharge Date/Time: 04/12/24 01:17
[2024-04-11 21:00] VITALS: BP 166/58
[2024-04-11] MEDS: TYLENOL 1000 MG PO (21:24)
[2024-04-11 21:26] LABS: % Basophils 0.3 % (0-2); % Eosinophils 0.2 % (0-6); % Immature Granulocytes 0.6 % (0-0.5); % Lymphocytes 6.3 % (20.5-51.1); % Monocytes 6.3 % (1.7-9.3); % Neutrophils 86.3 % (42.2-75.2); Absolute Basophils 0.1 10^3/uL (0-0.2); Absolute Immature Granulocytes 0.1 10^3/uL (0-0.05); Hematocrit 27.9 % (37.0-47.0); Hemoglobin 9.5 g/dL (12.0-16.0); Mean Corp Hgb Conc. 34.1 g/dL (33.0-37.0); Mean Corpuscular Hgb 30.5 pg (27.0-31.0); Mean Corpuscular Volume 89.7 fL (81.0-99.0); Mean Platelet Volume 10.3 fL (7.4-10.4); Nucleated Red Blood Cells % 0 %; Platelet Count 195 10^3/uL (130-400); Red Blood Cell Count 3.11 10^6/uL (4.20-5.40); Red Cell Dist. Width 13.1 % (11.5-14.5); Urine Albumin Trace (Neg - Trace); Urine Bilirubin Negative (Negative); Urine Character Clear (Clear); Urine Color Yellow; Urine Glucose 3+ (Negative); Urine Ketone Negative (Negative); Urine Leukocyte Negative (Negative); Urine Nitrite Negative (Negative); Urine Occult Blood Negative (Negative); Urine Urobilinogen Negative (Neg - 1+); White Blood Cell Count 16.2 10^3/uL (4.8-10.8)
[2024-04-11 21:38] LABS: Lactic Acid 1.3 mmol/L (0.7-2.0)
[2024-04-11 21:43] LABS: ALT (SGPT) 37 U/L (0-35); AST (SGOT) 58 U/L (14-36); Albumin 4.2 g/dl (3.5-5.0); Alkaline Phosphatase 43 U/L (38-126); Blood Urea Nitrogen 28 mg/dl (7-17); COVID-19 Antigen Negative (Negative); Calcium 8.9 mg/dl (8.4-10.2); Carbon Dioxide 22 mmol/L (22-30); Chloride 103 mmol/L (98-107); Estimated Creatinine Clearance 30 ml/min; Glucose 285 mg/dl (70-99); Potassium 4.8 mmol/L (3.5-5.1); Sodium 138 mmol/L (135-145); Total Bilirubin 0.6 mg/dl (0.2-1.3); Total Protein 7.7 g/dl (6.3-8.2); eGFR 35.45
[2024-04-11] MEDS: NSS 2400 ML IV (21:58)
[2024-04-11 22:00] VITALS: BP 159/55
[2024-04-11] MEDS: ZOSYN 100 IV (22:43)
--- NOTE | 2024-04-11 23:02 | HPS.HSE ---
Family Physician
-
Family Physician: Govind Calderon
Chief Complaint
-
Weakness
History of Present Illness
Patient is a 78y F with PMH significant for ASCVD, CKD, HTN and recent CVA who presents to ED complaining of episode of weakness / change in mental status this evening. History obtained from the patient and the family at the bedside with family
serving as motor vehicle parts interpreter. Patient was recently admitted for R weakness and slurred speech on 02/20/24. She was treated for presumed L MCA CVA (unable to get MRI due to ICA coil in place) and was discharged to [facility]. She was discharged from [facility]
on 03/12 and has continued to recover well at home. Family states that patient woke this AM, showered herself and has generally been doing very well. She was seen by [facility] / Home PT and they signed off this AM.
This evening around 6PM, patient began to act 'slow' and 'sluggish'. Daughter states that she was not responding to speech. She was sluggish with her movements and it took her 30-60 seconds to take a single step. There was no appreciable
laterality to her symptoms. Daughter also stated that her face appeared flushed. Patient was brought to the ED for further evaluation.
While in the ED, her symptoms have gradually improved and she is currently at baseline. She is ambulating without assistance in the ED room and has no current complaints.
Patient denies any recent issues with sore throat, cough, dyspnea, fevers / chills, abdominal pain, N/V or urinary complaints.
Her stool has been somewhat loose on daily Miralax.
Her grandson was recently ill with ear infection / sore throat - however, he just returned home from boarding school today.
No other known sick contacts.
No new medications.
Daughter states that patient had low blood glucose last evening of 45. She received supplemental dextrose and a snack.
Her glucose this AM was 139. This evening during her episode it was 84.
Medical History
Past Medical History
Past Medical History: Reports Other
Additional Past Medical History:
ASCVD
Diabetes Mellitus, Type II
CKD Stage IV
Essential Hypertension
Hyperlipidemia
Hypothyroidism
Brain Aneurysm s/p Coil
Past Surgical History: Reports Other
Additional Past Surgical History:
Appendectomy
Brain Aneurysm Coil (L Cavernous ICA)
Social History
Tobacco: Non-smoker
Alcohol: None
Living: With Family
Family History
Family History: Other (Mother: Heart Disease)
Allergies / Home Medications
Allergies reflects when Allergies were last updated in [employer].
Home Medications with original date entered in [employer]
Allergy/Medication List:
Allergies
Allergy/AdvReac Type Severity Reaction Status Date / Time
No Known Allergies Allergy Verified 02/20/24 15:58
Home Medications
calcium carbonate 500 mg PO DAILY Supplement 02/20/24
nitroglycerin 0.4 mg sublingual tablet 0.4 mg sublingual [id number] PRN chest pain 02/20/24
cholecalciferol (vitamin D3) 50 mcg (2,000 unit) tablet 50 mcg PO DAILY Supplement 30 days #30 tabs 03/11/24
clopidogrel 75 mg tablet 75 mg PO DAILY cva 30 days #30 tabs 03/11/24
insulin glargine 100 unit/mL (3 mL) subcutaneous pen (Basaglar KwikPen U-100 Insulin) 27 unit (0.27 mL) SC HS Diabetes #0 mL 03/11/24
levothyroxine 25 mcg tablet 37.5 mcg (1.5 x 25 mcg) PO DAILY@0600 hypothryroidism 30 days #30 tabs 03/11/24
pantoprazole 40 mg tablet,delayed release 40 mg PO DAILY GERD 30 days #30 tabs 03/11/24
polyethylene glycol 3350 17 gram oral powder packet (HealthyLax) 17 g PO DAILY Supplement 30 days #30 packets 03/11/24
rosuvastatin 40 mg tablet 40 mg PO DAILY High Cholesterol 30 days #30 tabs 03/11/24
amlodipine 2.5 mg tablet 2.5 mg PO DAILY blood pressure 04/11/24
insulin glulisine U-100 100 unit/mL subcutaneous pen (Apidra SoloStar U-100 Insulin) 25 unit SC AC Diabetes 04/11/24
lidocaine 4 % topical patch 1 patch topical DAILYPRN PRN back pain 04/11/24
Review of Systems
-
History Source: Patient and Family
A 12 point ROS was completed and negative except as noted: Yes
Constitutional: Reports Fatigue; Denies Fever or Chills
EENT: Denies Sore Throat
Respiratory: Denies Cough or Trouble Breathing
Cardiac: Denies Chest Pain or Palpitations
Abdomen/GI: Reports Diarrhea; Denies Abdominal Pain, Nausea, Vomiting, Constipated, Bloody Stools, Black Stools or Anorexia
: Denies Dysuria, Frequency or Flank Pain
Musculoskeletal: Denies Joint Pain or Edema
Neurological: Reports Weakness; Denies Dizzy, Headache or Numbness
Psych: Denies Depression or Anxiety
Physical Exam
Vital Signs
Vital Signs
Temp Pulse Resp BP Pulse Ox
102.2 F H 87 17 159/55 97
04/11/24 20:06 04/11/24 22:45 04/11/24 22:45 04/11/24 22:00 04/11/24 22:45
Physical Exam
General: Other (78y F in no acute distress.)
HEENT: Moist mucous membranes and PERRLA
Respiratory: Clear; No Wheezes, Rales or Rhonchi
Cardiac: S1/S2 and Regular Rhythm; No Murmur
GI: Soft, Non Tender, Non Distended and Normal Bowel Sounds
Musculoskeletal: No Clubbing, No Cyanosis and No Edema
Neuro: AO x 3 and Other (R weakness persists from recent CVA. No new focal deficits.)
Laboratory Results
-
04/11/24 21:15
04/11/24 21:15
Laboratory Results
Lactic Acid 1.3 mmol/L (0.7-2.0) 04/11/24 21:15
Total Bilirubin 0.6 mg/dl (0.2-1.3) 04/11/24 21:15
AST 58 U/L (14-36) H 04/11/24 21:15
ALT 37 U/L (0-35) H 04/11/24 21:15
Alkaline Phosphatase 43 U/L (38-126) 04/11/24 21:15
Impression/Plan
-
A/P: Patient is a 78y F with PMH significant for ASCVD with recent CVA who presents to ED for evaluation of new change in mental status this evening.
Acute Change in Mental Status
Acute TME versus other
- Admit for further evaluation and treatment.
- ? 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
- Treat potential infectious etiology as noted below.
- Check CT head now for any changes from prior.
- Patient appears to have returned to recent baseline per family - follow for any new symptoms / complaints.
SIRS
- Patient presents with SIRS criteria x 4 - but no clear source of infection.
- UA unremarkable. CXR clear. COVID / Flu negative.
- No focal symptoms / complaints to suggest infectious source.
- Will continue with empiric abx with Zosyn for now and follow-up culture data.
- Follow temperature curve and monitor for any clinical changes / new symptoms.
- ID evaluation for further recommendations.
Recent L MCA CVA
Right Sided Weakness secondary to the above
ASCVD
- Stable. No new focal deficits on current exam.
- Check CT head as noted above.
- Continue current med regimen including Plavix, statin, etc.
- Follow for any neurologic changes.
- Continue PT / OT, etc.
DM-II
- Some moderate hypoglycemia at home recently per daughter.
- Continue basal : bolus insulin regimen with decreased doses.
- ADA diet.
- Recent A1C = 6.5%.
Benign Hypertension
- Stable. Continue amlodipine with holding parameters.
Hypothyroidism
- Stable. Continue current T4 replacement.
CKD IV
- Stable. Renal function is at / near known baseline.
- Follow for any changes.
Anemia of CKD
- Stable. Hgb is near recent baseline.
- Follow for any changes.
DVT Prophylaxis: SCDs
Code Status: Full
[2024-04-11 23:03] VITALS: BP 159/57
[2024-04-12] VITALS (12 sets, daily range): BP systolic 93–159; BP diastolic 46–66; PULSE 70–88; BMI 31.4
[2024-04-12] MEDS: VANCOCIN 540 MG IV (00:27)
[2024-04-12 01:25] LABS: Lactic Acid 1.5 mmol/L (0.7-2.0)
[2024-04-12 01:45] LABS: Glucose - Point of Care 222 mg/dl (70-99)
--- NOTE | 2024-04-12 02:00 | PTCARENOTE ---
Received patient from ED via stretcher. Patient ambulated from stretcher to bed x2 assist. Patient is Mandarin speaking, daughter at bedside helping with admission. Oriented patient to room and placed call cisneros within reach.
[2024-04-12] MEDS: ZOSYN 50 IV ×4 (05:55→22:35)
[2024-04-12] MEDS: SYNTHROID 37.5 MCG PO (05:55)
[2024-04-12 06:58] LABS: Hematocrit 24.9 % (37.0-47.0); Hemoglobin 8.2 g/dL (12.0-16.0); Mean Corp Hgb Conc. 32.9 g/dL (33.0-37.0); Mean Corpuscular Hgb 30.4 pg (27.0-31.0); Mean Corpuscular Volume 92.2 fL (81.0-99.0); Mean Platelet Volume 10.3 fL (7.4-10.4); Platelet Count 153 10^3/uL (130-400); Red Cell Dist. Width 13.2 % (11.5-14.5); White Blood Cell Count 7.3 10^3/uL (4.8-10.8)
[2024-04-12 07:34] LABS: Glucose - Point of Care 151 mg/dl (70-99)
[2024-04-12 07:37] LABS: ALT (SGPT) 32 U/L (0-35); AST (SGOT) 44 U/L (14-36); Albumin 3.2 g/dl (3.5-5.0); Alkaline Phosphatase 40 U/L (38-126); Blood Urea Nitrogen 22 mg/dl (7-17); Calcium 8.1 mg/dl (8.4-10.2); Carbon Dioxide 21 mmol/L (22-30); Chloride 110 mmol/L (98-107); Estimated Creatinine Clearance 33 ml/min; Glucose 171 mg/dl (70-99); Potassium 4.1 mmol/L (3.5-5.1); Sodium 142 mmol/L (135-145); Total Bilirubin 0.4 mg/dl (0.2-1.3); Total Protein 6.1 g/dl (6.3-8.2); eGFR 38.51
--- NOTE | 2024-04-12 07:41 | W.PN.HOSP.TC ---
Today's Communication/Plan
-
cont abx as per ID
follow cultures
PT/OT
Glycemic control
Assessment / Plan
Assessment / Plan
Physical Exam
General: no acute distress appears comfortable at this time.
HEENT: Moist mucous membranes and PERRLA
Respiratory: Clear; No Wheezes, Rales or Rhonchi
Cardiac: S1/S2 and Regular Rhythm; No Murmur
GI: Soft, Non Tender, Non Distended and Normal Bowel Sounds
Musculoskeletal: No Clubbing, No Cyanosis and No Edema
Neuro: AO x 3 R weakness persists from recent CVA. No new focal deficits
A/P: Patient is a 78y F with PMH significant for ASCVD with recent CVA who presents to ED for evaluation of new change in mental status this evening.
Acute Change in Mental Status
Acute TME suspect 2/2 URI possibly viral vs aspiration
- Mental status since improved, baseline as per daughter
-CT head appreciated no acute abn's
SIRS possible sepsis 2/2 pneumonia (bacterial vs viral) vs aspiration
- Patient presents with SIRS criteria x 4
- UA unremarkable. CXR no acute abn's noted. COVID / Flu negative.
- Follow temperature curve and monitor for any clinical changes / new symptoms.
- ID eval appreciated cont zosyn, consider repeat COVID in 48 hours
Recent L MCA CVA
Right Sided Weakness secondary to the above
ASCVD
- Stable. No new focal deficits on current exam.
- CT head appreciated no acute abn's
- Continue current med regimen including Plavix statin
- PT/OT appreciated Home Services
-ST appreciated appropriate for regular diet
DM-II
- Some moderate hypoglycemia at home recently per daughter.
- ADA diet.
- Recent A1C = 6.5%.
-Lantus 20U
-moderate sliding scale
-premeal insulin placed on hold
-monitor and titrate insulin regimen as necessary.
Benign Hypertension
- Stable. Continue amlodipine with holding parameters.
Hypothyroidism
- Stable. Continue current T4 replacement.
CKD IV
- Stable. Renal function is at / near known baseline.
- Follow for any changes.
Anemia of CKD
- Stable. Hgb is near recent baseline.
- Follow for any changes.
DVT Prophylaxis: SCDs
Code Status: Full
Discussed with patient and patient's daughter special forces specialist JB Browning who provided translation services Mandarin
I spent a total of 50 minutes with the patient or on the floor. More than 50% of this time involved counseling and coordination of care.
Anticipated Discharge: 24 - 48 hours
Subjective/Interval History
-
Date of Service: April 12, 2024
Seen and examined at bedside in no acute distress resting comfortably in bed. Overall reports feeling well. Appetite improved. Reports generalized body aches arthritis but also notes that these have been chronic for some time. Daughter Nallely
present during evaluation and providing translation.
Objective Data
-
Labs:
Laboratory Results
04/11/24 04/12/24
21:15 06:10
WBC 16.2 H 7.3
Hgb 9.5 L 8.2 L
Hct 27.9 L 24.9 L
Plt Count 195 153 D
Sodium 138 142
Potassium 4.8 4.1
Chloride 103 110 H
Carbon Dioxide 22 21 L
BUN 28 H 22 H
Creatinine 1.5 H 1.4 H
Glucose 285 H 171 H
Calcium 8.9 8.1 L
Total Bilirubin 0.6 0.4
AST 58 H 44 H
ALT 37 H 32
Alkaline Phosphatase 43 40
Vital Signs:
Vital Signs
Temp Pulse Resp BP Pulse Ox
98.3 F 64 18 138/56 97
04/12/24 03:00 04/12/24 03:00 04/12/24 03:00 04/12/24 03:00 04/12/24 03:00
[2024-04-12] MEDS: CRESTOR 40 MG PO (09:05)
[2024-04-12] MEDS: NORVASC 2.5 MG PO (09:05)
[2024-04-12] MEDS: PROTONIX 40 MG PO (09:05)
[2024-04-12] MEDS: MIRALAX 17 GRAMS PO (09:06)
[2024-04-12] MEDS: NOVOLOG FLEXPEN-MODERATE RESISTANCE 1 UNITS SC ×2 (09:06→12:12)
[2024-04-12] MEDS: PLAVIX 75 MG PO (09:07)
[2024-04-12] MEDS: NOVOLOG FLEXPEN 10 UNITS SC ×2 (09:07→12:13)
[2024-04-12] MEDS: LIDOCAINE 4% PATCH 1 PATCH TOPICAL (09:46)
[2024-04-12 11:36] LABS: Glucose - Point of Care 159 mg/dl (70-99)
--- NOTE | 2024-04-12 12:24 | CON.ID ---
Consultation
-
Date/Time Consultation Requested: April 12, 2024 0120
Date/Time Consultation Performed: April 12, 2024 1230
Requesting Provider: Dr. Joe Conner
Performing Provider: Dr. Maryann Schwartz
Reason for Consultation: Fever unknown source
Chief Complaint / Past History
Chief Complaint
Weakness
History of Present Illness
78-year-old female with history of diabetes mellitus, brain aneurysm coiling, CVA, CKD 4, who was recently hospitalized from February 24 to February 28 with CVA, discharged to [facility] then to home (03/12). She was doing well at home. Home PT
discharged her yesterday. Last night patient was more lethargic and weak. In ED she was febrile 102.2. white count 16.2. In ED patient improved and was ambulating. She received vancomycin and Zosyn. No ill contacts. COVID and flu negative.
Patient without headache, cough, shortness of breath, nausea vomiting or diarrhea, no urine symptoms. She is sleepy.
Past History
Additional Past Medical History:
DM
CVA
HTN
HLD
CKD4
CAD
hypothyroidism
chronic back pain
Carotid artery stenosis
brain aneurysm stent/coiling 2011
Appendectomy
Allergy History:
No Known Allergies Allergy (Verified 02/20/24 15:58)
Medications Reviewed: Yes
Current Antibiotics:
Zosyn
Social History
Tobacco: Non-Smoker
Alcohol: None
Drug: None
Living: With Family
Family History
Family History: Not Pertinent
Review of Systems
Review of Systems
General: Negative Change in Appetite
HEENT: Negative Sinus Problems, Headache or Pharyngitis
Cardiovascular: Negative Chest Pain or Dyspnea
Respiratory: Negative Dyspnea or Cough
Gasteroenterology: Negative Nausea, Vomiting or Diarrhea
Genital / Urological: Negative Dysuria or Flank Pain
Endocrine: Weakness
Neurological: Negative Dizziness
Vital Signs
Temp Pulse Resp BP Pulse Ox
98.0 F 69 20 156/62 94
04/12/24 11:25 04/12/24 11:25 04/12/24 11:25 04/12/24 11:25 04/12/24 11:25
Selected Entries
04/11/24
20:06
Temp 102.2 F H
Physical Exam
Physical Exam
Constitutional: No Acute Distress, Comfortable and Non-toxic
Head: Other (No frontal or max or sinus tenderness)
Eyes: No Conjunctival Hemorrhage and Sclera Anicteric
Cardiovascular: Regular Rate and S1/S2
Pulmonary: Clear
Gastrointestinal: Soft, Non Tender, Non Distended and Normal Bowel Sounds
Genito-Urinary: Negative CVA Tenderness
Extremities: Negative Edema
Neurological: Negative Meningeal Signs
Lab / Diagnostic Study Results
04/12/24 06:10
04/12/24 06:10
Abs Immat Gran (auto) 0.1 10^3/uL (0-0.05) H 04/11/24 21:15
Absolute Neuts (auto) 14.0 10^3/uL (1.4-6.5) H 04/11/24 21:15
Absolute Lymphs (auto) 1.0 10^3/uL (1.2-3.4) L 04/11/24 21:15
Absolute Monos (auto) 1.0 10^3/uL (0.1-0.6) H 04/11/24 21:15
Absolute Basos (auto) 0.1 10^3/uL (0-0.2) 04/11/24 21:15
Immature Gran % 0.6 % (0-0.5) H 04/11/24 21:15
Neutrophils % 86.3 % (42.2-75.2) H 04/11/24 21:15
Lymphocytes % 6.3 % (20.5-51.1) L 04/11/24 21:15
Monocytes % 6.3 % (1.7-9.3) 04/11/24 21:15
Eosinophils % 0.2 % (0-6) 04/11/24 21:15
Basophils % 0.3 % (0-2) 04/11/24 21:15
Lactic Acid 1.5 mmol/L (0.7-2.0) 04/12/24 00:22
Microbiology Results
Micro:
04/12/24 00:22 Blood Culture - Pending
Blood/Venous
04/12/24 00:22 Blood Culture - Pending
Blood/Venous
04/11/24 21:15 Influenza Types A & B (JULI) - Final
Nasal Swab Negative for Influenza A & B, NAAT
Negative results must be combined with clinical observations
and patient history.
Nucleic Acid Amplification test (NAAT)performed on the
[employer] platform.
04/11/24 CXR: There is mild prominence of the pulmonary vasculature without overt edema, unchanged from prior. No focal airspace disease.
04/12/[address]: Stable chronic findings as described. No acute intracranial abnormality noted.
Assessment / Plan
# Fever x 1
# Leukocytosis resolved
- Unclear source at this time
UA neg, CXR neg, COVID/Flu neg
- Follow blood cx's. If neg, dc Zosyn
-Consider repeat COVID test in 48hrs.
# Conditions BELT LACER
DM
CVA
HTN
HLD
CKD4
CAD
hypothyroidism
chronic back pain
Carotid artery stenosis
brain aneurysm stent/coiling 2011
Appendectomy
--- NOTE | 2024-04-12 12:34 | PTOTSP ---
ST Acute Care Evaluation
Pt currently presents with oral, pharyngeal, and esophageal parameters that are WFL for safe PO intake of all solids and liquids. No overt s/s of penetration or aspiration noted at bedside. Pt's daughter reports pt's speech, language, and cognitive
skills are at baseline. No skilled FOREMAN OR SUPERVISOR AND OPERATOR services deemed warranted at this time.
Recommendations:
- Continue with regular solids, thin liquids, meds as tolerated.
- General aspiration precautions.
- FOREMAN OR SUPERVISOR AND OPERATOR to sign off. Please re-consult if needed.
--- NOTE | 2024-04-12 15:49 | CM ---
CM following re: discharge planning.
Reviewed pt's chart, met with pt.
Pt is a 78 year old mandarin speaking female, admitted with primary dx of SIRS.
Pt does not speak Surinamese, information obtained from previous admission. pt lives [place] daughter and son in [place] in [place] and patient has a first floor set up., uses a walker, was at [facility] months ago.
PT and OT will evaluate the pt to determine a level of care at discharge.
PCP: Govind Calderon
Pharmacy: [facility]
dD/C plan: uncertain at this time and will depend on pt's progress.
CM will follow with discharge plan updates as hospitalization progresses
[2024-04-12 16:41] LABS: Glucose - Point of Care 75 mg/dl (70-99)
[2024-04-12] MEDS: NOVOLOG FLEXPEN-MODERATE RESISTANCE SC (16:41)
[2024-04-12] MEDS: NOVOLOG FLEXPEN SC (16:56)
--- NOTE | 2024-04-12 20:00 | PTCARENOTE ---
Patent tachycardic at rest in the 140's sustaining for approximately 10 minutes. RN used language line to ask patient about any symptoms. Pt stated she felt flushed and was in some discomfort. No c/o chest pain. Patient then went back down to the
80's-90's. Daughter of patient to her on the phone and came in. States that that her mother (the patient) sees a behavioral geneticist and he prescribed her nitroglycerin PRN for when she feels flushed, feels her heart racing, SOB, etc. COLOR TECHNICIAN made aware, med is
on home med list. PRN added, see MAR. Patient resting comfortably at this time, no current complaints. HR 80's. Call cisneros is within reach.
[2024-04-12] MEDS: TYLENOL 650 MG PO (21:22)
[2024-04-12 22:18] LABS: Glucose - Point of Care 195 mg/dl (70-99)
[2024-04-12] MEDS: LANTUS 0.2 UNITS SC (22:36)
[2024-04-13 03:58] VITALS: BP 146/65
[2024-04-13] MEDS: ZOSYN 50 IV (05:06)
[2024-04-13] MEDS: SYNTHROID 37.5 MCG PO (05:06)
[2024-04-13 06:00] VITALS: BMI 29.6
--- NOTE | 2024-04-13 06:04 | PTCARENOTE ---
Patient refusing AM labs. Ballaster utilized as patient is Mandarin speaking, patient still continuing to refuse. INSTRUCTIONAL DESIGNER made aware, plan of care ongoing.
--- NOTE | 2024-04-13 06:40 | W.PN.HOSP.TC ---
Today's Communication/Plan
-
monitor off abx
repeat COVID test in AM Sun
resume premeal insulin at reduced dose 5U
cont glycemic control
Blood pressure control
plavix and statin
Assessment / Plan
Assessment / Plan
Physical Exam
General: no acute distress appears comfortable at this time.
HEENT: Moist mucous membranes and PERRLA
Respiratory: Clear; No Wheezes, Rales or Rhonchi
Cardiac: S1/S2 and Regular Rhythm; No Murmur
GI: Soft, Non Tender, Non Distended and Normal Bowel Sounds
Musculoskeletal: No Clubbing, No Cyanosis and No Edema
Neuro: AO x 3 R weakness persists from recent CVA. No new focal deficits
A/P: Patient is a 78y F with PMH significant for ASCVD with recent CVA who presents to ED for evaluation of new change in mental status this evening.
Acute Change in Mental Status
Acute TME suspect 2/2 URI possibly viral vs aspiration
- Mental status since improved, baseline as per daughter
-CT head appreciated no acute abn's
SIRS possible sepsis 2/2 pneumonia (bacterial vs viral) vs aspiration
- Patient presents with SIRS criteria x 4 since resolved
- UA unremarkable. CXR no acute abn's noted. COVID / Flu negative.
- Follow temperature curve and monitor for any clinical changes / new symptoms.
- ID eval appreciated abx discontinued, monitored off, COVID repeat in AM Sunday
Recent L MCA CVA
Right Sided Weakness secondary to the above
ASCVD
- Stable. No new focal deficits on current exam.
- CT head appreciated no acute abn's
- Continue current med regimen including Plavix statin
- PT/OT appreciated Home Services
-ST appreciated appropriate for regular diet
DM-II
- Some moderate hypoglycemia at home recently per daughter.
- ADA diet.
- Recent A1C = 6.5%.
-Lantus 20U
-moderate sliding scale
-premeal insulin briefly placed on hold d/t relatively low sugars, resumed at reduced dose 5U AC (previously 10U AC)
-monitor and titrate insulin regimen as necessary.
Benign Hypertension
- Stable. Continue amlodipine with holding parameters.
Hypothyroidism
- Stable. Continue current T4 replacement.
CKD III (correction to prior documentation
- Stable. Baseline appears to be 1.4-1.5
- Repeat BMP outpt with primary care provider in 1 week following discharge
Anemia of CKD
- H&H stable
-repeat CBC with primary care provider in 1 week of discharge recommended
DVT Prophylaxis: SCDs
Code Status: Full
Discussed with patient and patient's daughter chairman emeritus JB Browning who provided translation services Mandarin
I spent a total of 40 minutes with the patient or on the floor. More than 50% of this time involved counseling and coordination of care.
Anticipated Discharge: Within 24 hours
Subjective/Interval History
-
Date of Service: April 13, 2024
No acute distress. Appears comfortable. Denies new acute issues.
Objective Data
-
Labs:
Laboratory Results
04/13/24
06:00
WBC Pending
Hgb Pending
Hct Pending
Plt Count Pending
Sodium Pending
Potassium Pending
Chloride Pending
Carbon Dioxide Pending
BUN Pending
Creatinine Pending
Glucose Pending
Calcium Pending
Vital Signs:
Vital Signs
Temp Pulse Resp BP Pulse Ox
99 F 75 18 146/65 99
04/13/24 03:58 04/13/24 03:58 04/13/24 03:58 04/13/24 03:58 04/13/24 03:58
I&O
04/11/24 04/12/24 04/13/24
06:59 06:59 05:59
Intake Total 460 / 460
Balance 460 / 460
[2024-04-13 07:14] LABS: Glucose - Point of Care 126 mg/dl (70-99)
[2024-04-13 07:34] LABS: Hemoglobin 9.8 g/dL (12.0-16.0); Mean Corp Hgb Conc. 33.8 g/dL (33.0-37.0); Mean Corpuscular Hgb 30.1 pg (27.0-31.0); Mean Platelet Volume 10.5 fL (7.4-10.4); Platelet Count 163 10^3/uL (130-400); Red Blood Cell Count 3.26 10^6/uL (4.20-5.40); Red Cell Dist. Width 12.9 % (11.5-14.5); White Blood Cell Count 4.5 10^3/uL (4.8-10.8)
[2024-04-13 08:01] VITALS: BP 161/74; BP 164/73; PULSE 66; PULSE 72
[2024-04-13] MEDS: PROTONIX 40 MG PO (08:14)
[2024-04-13] MEDS: NOVOLOG FLEXPEN-MODERATE RESISTANCE SC ×2 (08:14→17:08)
[2024-04-13] MEDS: CRESTOR 40 MG PO (08:15)
[2024-04-13] MEDS: MIRALAX 17 GRAMS PO (08:15)
[2024-04-13] MEDS: NORVASC 2.5 MG PO (08:15)
[2024-04-13] MEDS: PLAVIX 75 MG PO (08:15)
[2024-04-13] MEDS: LIDOCAINE 4% PATCH 1 PATCH TOPICAL (08:16)
[2024-04-13 09:57] LABS: Blood Urea Nitrogen 19 mg/dl (7-17); Calcium 9.6 mg/dl (8.4-10.2); Carbon Dioxide 27 mmol/L (22-30); Chloride 104 mmol/L (98-107); Estimated Creatinine Clearance 30 ml/min; Glucose 175 mg/dl (70-99); Magnesium 2.2 mg/dl (1.6-2.3); Potassium 4.3 mmol/L (3.5-5.1); Sodium 142 mmol/L (135-145); eGFR 35.45
[2024-04-13 11:31] VITALS: BP 95/67
[2024-04-13 12:17] LABS: Glucose - Point of Care 296 mg/dl (70-99)
[2024-04-13] MEDS: NOVOLOG FLEXPEN 5 UNITS SC ×2 (12:33→17:08)
[2024-04-13] MEDS: NOVOLOG FLEXPEN-MODERATE RESISTANCE 5 UNITS SC (12:33)
[2024-04-13] MEDS: NOVOLOG FLEXPEN SC (12:51)
--- NOTE | 2024-04-13 13:20 | W.PN.ID1 ---
Date of Service
Date of Service: April 13, 2024
Today's Communication
Observe off abx.
Assessment / Plan
# Fever x 1, resolved
# Leukocytosis resolved
- Unclear source at this time. ?viral
UA neg, CXR neg, COVID/Flu neg
- blood cx's neg.
- dc Zosyn
-To repeat COVID test tomorrow.
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
DM
CVA
HTN
HLD
CKD4
CAD
hypothyroidism
chronic back pain
Carotid artery stenosis
brain aneurysm stent/coiling 2011
Appendectomy
Chief Complaint
-: Fever and Leukocytosis
Subjective / Review of Systems
Daughter at bedside.
Pt feeling well and better. No specific complaints.
Vital Signs / Physical Exam
Vital Signs
Vital Signs
Temp Pulse Resp BP Pulse Ox
98.4 F 76 18 95/67 98
04/13/24 11:31 04/13/24 11:31 04/13/24 11:31 04/13/24 11:31 04/13/24 11:31
Physical Exam
Constitutional: No Acute Distress and Comfortable
Cardiovascular: Regular Rate and S1/S2
Pulmonary: Clear
Gastrointestinal: Soft, Non Tender, Non Distended and Normal Bowel Sounds
Genito-Urinary: Negative CVA Tenderness
Extremities: Negative Edema
Neurological: AO x 3
Objective Data
Lab Data
Lab Results
04/13/24 07:26
04/13/24 09:22
Estimated Creat Clear 30 ml/min 04/13/24 09:22
Lactic Acid 1.5 mmol/L (0.7-2.0) 04/12/24 00:22
Total Bilirubin 0.4 mg/dl (0.2-1.3) 04/12/24 06:10
AST 44 U/L (14-36) H 04/12/24 06:10
ALT 32 U/L (0-35) 04/12/24 06:10
Alkaline Phosphatase 40 U/L (38-126) 04/12/24 06:10
Most recent labs reviewed.
Micro Results:
04/12/24 00:22 Blood Culture - Preliminary
Blood/Venous No Growth in 24 hours- Final report to follow
04/12/24 00:22 Blood Culture - Preliminary
Blood/Venous No Growth in 24 hours- Final report to follow
04/11/24 21:15 Influenza Types A & B (JULI) - Final
Nasal Swab Negative for Influenza A & B, NAAT
Negative results must be combined with clinical observations
and patient history.
Nucleic Acid Amplification test (NAAT)performed on the
[employer] platform.
04/11/24 CXR: There is mild prominence of the pulmonary vasculature without overt edema, unchanged from prior. No focal airspace disease.
04/12/[address]: Stable chronic findings as described. No acute intracranial abnormality noted.
Care Review
Plan reviewed with: Physician (Dr. Moya)
[2024-04-13 15:59] VITALS: BP 118/69
[2024-04-13 16:58] LABS: Glucose - Point of Care 132 mg/dl (70-99)
[2024-04-13 19:43] VITALS: BP 151/62
--- NOTE | 2024-04-13 20:00 | PTCARENOTE ---
Patent tachycardic at rest in the 140's sustaining for approximately 10 minutes. RN used language line to ask patient about any symptoms. Pt stated she felt flushed and was in some discomfort. No c/o chest pain. Patient then went back down to the
80's-90's. Daughter of patient to her on the phone and came in. States that that her mother (the patient) sees a manager software development and he prescribed her nitroglycerin PRN for when she feels flushed, feels her heart racing, SOB, etc. PULP GRINDER made aware, med is
on home med list. PRN added, see MAR. Patient resting comfortably at this time, no current complaints. HR 80's. Call cisneros is within reach.
[2024-04-13 21:19] LABS: Glucose - Point of Care 205 mg/dl (70-99)
[2024-04-13] MEDS: LANTUS 0.2 UNITS SC (21:36)
[2024-04-13 23:27] VITALS: BP 160/69
[2024-04-14 03:16] VITALS: BP 145/66
[2024-04-14] MEDS: SYNTHROID 37.5 MCG PO (05:49)
[2024-04-14 06:00] VITALS: BMI 29.0
[2024-04-14 07:39] LABS: Glucose - Point of Care 147 mg/dl (70-99)
[2024-04-14] MEDS: NOVOLOG FLEXPEN 5 UNITS SC ×2 (07:39→11:58)
[2024-04-14] MEDS: PLAVIX 75 MG PO (07:40)
[2024-04-14] MEDS: CRESTOR 40 MG PO (07:40)
[2024-04-14] MEDS: NORVASC 2.5 MG PO (07:40)
[2024-04-14] MEDS: NOVOLOG FLEXPEN-MODERATE RESISTANCE SC (07:40)
[2024-04-14] MEDS: PROTONIX 40 MG PO (07:40)
[2024-04-14] MEDS: MIRALAX 17 GRAMS PO (07:40)
[2024-04-14] MEDS: LIDOCAINE 4% PATCH 1 PATCH TOPICAL (07:40)
[2024-04-14 07:44] VITALS: BP 175/73
[2024-04-14 08:22] LABS: COVID-19 Antigen Negative (Negative)
--- NOTE | 2024-04-14 08:53 | VNURNOTE ---
Chart reviewed. Patient is current with [facility] nursing, PROPERTY HANDLER, PT, OT. Will continue to follow hospital course and DC plans.
[2024-04-14 11:12] VITALS: BP 155/59
--- NOTE | 2024-04-14 11:14 | CM ---
CM following for discharge planning. Kelechi lives with her daughter and son-in-law with plan to return home at discharge with resumption of [facility] for PT, OT and ST.
Plan: CM to continue to follow to coordinate any additional discharge planning needs identified during hospitalization.
[2024-04-14 11:48] LABS: Glucose - Point of Care 174 mg/dl (70-99)
[2024-04-14] MEDS: NOVOLOG FLEXPEN-MODERATE RESISTANCE 1 UNITS SC (11:57)
--- NOTE | 2024-04-14 12:17 | W.PN.ID1 ---
Date of Service
Date of Service: April 14, 2024
Today's Communication
Can dc home from ID standpoint.
Assessment / Plan
# Fever x 1, resolved
# Leukocytosis resolved
- Unclear source at this time. ?viral syndrome
UA neg, CXR neg, COVID/Flu neg
- blood cx's neg.
-repeat COVID negative.
-Can dc home from ID standpoint.
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
DM
CVA
HTN
HLD
CKD4
CAD
hypothyroidism
chronic back pain
Carotid artery stenosis
brain aneurysm stent/coiling 2011
Appendectomy
Chief Complaint
-: Fever and Leukocytosis
Subjective / Review of Systems
Feels well. No complaints.
Vital Signs / Physical Exam
Vital Signs
Vital Signs
Temp Pulse Resp BP Pulse Ox
98.0 F 64 16 155/59 96
04/14/24 11:12 04/14/24 11:12 04/14/24 11:12 04/14/24 11:12 04/14/24 11:12
Physical Exam
Constitutional: No Acute Distress and Comfortable
Cardiovascular: Regular Rate and S1/S2
Pulmonary: Clear
Gastrointestinal: Soft, Non Tender and Non Distended
Extremities: Negative Edema
Neurological: AO x 3
Objective Data
Lab Data
Lab Results
04/13/24 07:26
04/13/24 09:22
Estimated Creat Clear 30 ml/min 04/13/24 09:22
Lactic Acid 1.5 mmol/L (0.7-2.0) 04/12/24 00:22
Total Bilirubin 0.4 mg/dl (0.2-1.3) 04/12/24 06:10
AST 44 U/L (14-36) H 04/12/24 06:10
ALT 32 U/L (0-35) 04/12/24 06:10
Alkaline Phosphatase 40 U/L (38-126) 04/12/24 06:10
Most recent labs reviewed.
Micro Results:
04/12/24 00:22 Blood Culture - Preliminary
Blood/Venous No Growth in 48 hours- Final report to follow
04/12/24 00:22 Blood Culture - Preliminary
Blood/Venous No Growth in 48 hours- Final report to follow
04/11/24 21:15 Influenza Types A & B (JULI) - Final
Nasal Swab Negative for Influenza A & B, NAAT
Negative results must be combined with clinical observations
and patient history.
Nucleic Acid Amplification test (NAAT)performed on the
[employer] platform.
04/11/24 CXR: There is mild prominence of the pulmonary vasculature without overt edema, unchanged from prior. No focal airspace disease.
04/12/[address]: Stable chronic findings as described. No acute intracranial abnormality noted.
Care Review
Plan reviewed with: Physician (Dr. Funes)
--- NOTE | 2024-04-14 12:20 | W.PN.HOSP.TC ---
Addendum entered and electronically signed by Vick Funes MD 04/17/24 15:59:
[id number]
Original Note:
Today's Communication/Plan
-
cbc outpatient
fu pcp within 1 week
Assessment / Plan
Assessment / Plan
Physical Exam
General: no acute distress appears comfortable at this time.
HEENT: Moist mucous membranes and PERRLA
Respiratory: Clear; No Wheezes, Rales or Rhonchi
Cardiac: S1/S2 and Regular Rhythm; No Murmur
GI: Soft, Non Tender, Non Distended and Normal Bowel Sounds
Musculoskeletal: No Clubbing, No Cyanosis and No Edema
Neuro: AO x 3 R weakness persists from recent CVA. No new focal deficits
A/P: Patient is a 78y F with PMH significant for ASCVD with recent CVA who presents to ED for evaluation of new change in mental status this evening.
Acute Change in Mental Status
Acute TME suspect 2/2 URI possibly viral vs aspiration
- Mental status since improved, baseline as per daughter
-CT head appreciated no acute abn's
SIRS
� Suspect viral
� All infectious workup negative including SARS-CoV-2 negative today
� Blood cultures negative
� Follow-up CBC outpatient
Recent L MCA CVA
Right Sided Weakness secondary to the above
ASCVD
- Stable. No new focal deficits on current exam.
- CT head appreciated no acute abn's
- Continue current med regimen including Plavix statin
- PT/OT appreciated Home Services
-ST appreciated appropriate for regular diet
DM-II
- Some moderate hypoglycemia at home recently per daughter.
- ADA diet.
- Recent A1C = 6.5%.
-Lantus 20U; Aspart at 5u ac
-moderate sliding scale
-premeal insulin briefly placed on hold d/t relatively low sugars, resumed at reduced dose 5U AC (previously 10U AC)
-monitor and titrate insulin regimen as necessary.
Benign Hypertension
- Stable. Continue amlodipine with holding parameters.
Hypothyroidism
- Stable. Continue current T4 replacement.
CKD III (correction to prior documentation
- Stable. Baseline appears to be 1.4-1.5
-
Anemia of CKD
- H&H stable
-repeat CBC with primary care provider in 1 week of discharge recommended
DVT Prophylaxis: SCDs
Code Status: Full
More than 30 minutes spent in discharge including
Final examination of the patient
Summarizing hospital stay
Instructions for continuing care to all relevant caregivers
Preparation of discharge records, prescriptions, and referral forms
Total time spent (35 in minutes):
Anticipated Discharge: Today
Subjective/Interval History
-
Date of Service: April 14, 2024
No acute events overnight
Objective Data
-
Vital Signs:
Vital Signs
Temp Pulse Resp BP Pulse Ox
98.0 F 64 16 155/59 96
04/14/24 11:12 04/14/24 11:12 04/14/24 11:12 04/14/24 11:12 04/14/24 11:12
I&O
04/13/24 04/14/24 04/15/24
06:59 06:59 06:59
Intake Total 1680 / 1680
Output Total 2450 / 2450
Balance -770 / -770
Review of Systems
-
History Source: Patient
All other systems: Not reviewed unless documented
Physical Exam
-
General: Comfortable
HEENT: Negative Oxygen
Respiratory: Clear to Auscultation
Cardiac: Regular Rhythm and S1/S2; Negative Murmur or Rub
GI: Soft, Nontender and Nondistended
Musculoskeletal: No Edema
Neuro: Awake, Alert, Oriented, No Motor Deficits and Nonfocal/Grossly Intact
Psych: Calm
Data Reviewed
-
CT Scan: Image personally visualized and interpreted and Report Reviewed by me
Labs: Labs Reviewed by me
--- NOTE | 2024-04-14 12:23 | W.DS.TRANS ---
DC Summary - Ham Boner
-
Discharge Instructions:
Sleep Apnea Risk Intermediate
Discharge Diagnosis/Procedures Fever
Diet Diabetic, Carb Controlled,Low Cholesterol,Low
Fat
Activity As tolerated
Blood Work cbc in 3-5 days with pcp
Instructions:
Stand-Alone Forms:
Changes to Home Medications: Yes
Discharge Medications:
DC Medications w/original date entered in [facility]
calcium carbonate 500 mg PO DAILY Supplement 02/20/24
nitroglycerin 0.4 mg sublingual tablet 0.4 mg sublingual [id number] PRN chest pain 02/20/24
cholecalciferol (vitamin D3) 50 mcg (2,000 unit) tablet 50 mcg PO DAILY Supplement 30 days #30 tabs 03/11/24
clopidogrel 75 mg tablet 75 mg PO DAILY cva 30 days #30 tabs 03/11/24
levothyroxine 25 mcg tablet 37.5 mcg (1.5 x 25 mcg) PO DAILY@0600 hypothryroidism 30 days #30 tabs 03/11/24
pantoprazole 40 mg tablet,delayed release 40 mg PO DAILY GERD 30 days #30 tabs 03/11/24
polyethylene glycol 3350 17 gram oral powder packet (HealthyLax) 17 g PO DAILY Supplement 30 days #30 packets 03/11/24
rosuvastatin 40 mg tablet 40 mg PO DAILY High Cholesterol 30 days #30 tabs 03/11/24
amlodipine 2.5 mg tablet 2.5 mg PO DAILY blood pressure 04/11/24
lidocaine 4 % topical patch 1 patch topical DAILYPRN PRN back pain 04/11/24
insulin glargine 100 unit/mL (3 mL) subcutaneous pen (Basaglar KwikPen U-100 Insulin) 20 unit (0.2 mL) SC HS Diabetes #0 mL 04/14/24
insulin glulisine U-100 100 unit/mL subcutaneous pen (Apidra SoloStar U-100 Insulin) 5 unit (0.05 mL) SC AC Diabetes #0 mL 04/14/24
Home Medication Changes
insulin glargine 100 unit/mL (3 mL) subcutaneous pen (Basaglar KwikPen U-100 Insulin) 20 unit (0.2 mL) SC HS Diabetes #0 mL 04/14/24
insulin glulisine U-100 100 unit/mL subcutaneous pen (Apidra SoloStar U-100 Insulin) 5 unit (0.05 mL) SC AC Diabetes #0 mL 04/14/24
Pending Results: No
[2024-04-14] MEDS: FLUAD (65 yr+) 2024-2025 FORMULA 0.5 ML IM (12:47)
[2024-04-14 19:09] LABS: Hepatitis C Antibody Negative (Negative)
== END 2024-04-14 13:24 | disposition home or self-care (01) | DRG 152 ==
LOC: 4 EAST ACU 23:04
PROVIDERS: Emergency Medicine; Internal Medicine; ADMITTING PHYSICIAN Hospitalist; ATTENDING PHYSICIAN Internal Medicine; CONSULT PHYSICIAN Internal Medicine Infectious Disease; EMERGENCY PHYSICIAN Emergency Medicine; FAMILY PHYSICIAN Family Medicine
DX: J06.9 Acute upper respiratory infection, unspecified (principal); G92.8 Other toxic encephalopathy; N18.4 Chronic kidney disease, stage 4 (severe); G81.91 Hemiplegia, unspecified affecting right dominant side; I25.10 Atherosclerotic heart disease of native coronary artery without angina pectoris; I65.29 Occlusion and stenosis of unspecified carotid artery; Z86.73 Personal history of transient ischemic attack (TIA), and cerebral infarction without residual deficits; E11.649 Type 2 diabetes mellitus with hypoglycemia without coma; E11.22 Type 2 diabetes mellitus with diabetic chronic kidney disease; I12.9 Hypertensive chronic kidney disease with stage 1 through stage 4 chronic kidney disease, or unspecified chronic kidney disease; E03.9 Hypothyroidism, unspecified; N18.30 Chronic kidney disease, stage 3 unspecified; D63.1 Anemia in chronic kidney disease; Z11.52 Encounter for screening for COVID-19
CPT/HCPCS: 70450; 71046; 80048; 80053; 80076; 81003; 82962; 83605; 83735; 84100; 84443; 85025; 85027; 86803; 87040; 87502; 87811; 90662; 92610; 93005; 96361; 96365; 96375; 97163; 97167; 97535; 99291; G0008

== ENCOUNTER → 2024-08-30 11:41 | Outpatient (REF) | payer OTHER, SELFPAY | LOC: DHSLP 11:41 | PROVIDERS: ATTENDING PHYSICIAN Psychiatry & Neurology Neurology; FAMILY PHYSICIAN Physician Assistant | DX: G47.61 Periodic limb movement disorder (principal); G47.00 Insomnia, unspecified; R06.83 Snoring | CPT/HCPCS: 95810 ==

== ENCOUNTER → 2024-11-20 16:23 | Outpatient (REF) | payer OTHER, SELFPAY | LOC: RAD 16:23 | PROVIDERS: ATTENDING PHYSICIAN Physician Assistant | DX: R76.11 Nonspecific reaction to tuberculin skin test without active tuberculosis (principal) | CPT/HCPCS: 71046 ==